=== PATIENT | male | born 1960 | race Caucasian/White ===

== ENCOUNTER 2019-07-31 19:20 | Inpatient (IN) | payer MEDICARE, MEDICAID ==
[~2019-07-31] VITALS: Ht 190.5 cm; Wt 109.2 kg
[2019-07-31] MEDS ORDERED: BAYER CHEWABLE81 MG PO (19:25)
[2019-07-31] MEDS ORDERED: LIPITOR40 MG PO (19:25)
[2019-07-31] MEDS ORDERED: FERROUS SULFAT325 MG PO (19:26)
[2019-07-31] MEDS ORDERED: PLAVIX75 MG PO (19:26)
[2019-07-31] MEDS ORDERED: LASIX40 MG PO (19:26)
[2019-07-31] MEDS ORDERED: CATAPRES0.1 MG PO (19:26)
[2019-07-31] MEDS ORDERED: METOPROLOL TART50 MG PO (19:27)
[2019-07-31] MEDS ORDERED: LANTUS SOL100 UNIT/1 SC (19:27)
[2019-07-31] MEDS ORDERED: LINZESS145 MCG PO (19:27)
[2019-07-31] MEDS ORDERED: GLUCOPHAGE500 MG PO (19:27)
[2019-07-31] MEDS ORDERED: FLOMAX0.4 MG PO (19:28)
[2019-07-31] MEDS ORDERED: TRADJENTA5 MG PO (19:28)
[2019-07-31] MEDS ORDERED: ALBUTEROL SULF8.5 GM IH (19:28)
[2019-07-31 20:00] VITALS: BP 177/87
--- NOTE | 2019-07-31 20:32 | NUR ---
PT GIVEN BLACK COFFEE AND SANDWICH BOX. PT AT BEDSIDE.
[2019-07-31 20:33] VITALS: BP 185/101
[2019-07-31 22:14] VITALS: BP 173/80; BMI 43.8
--- NOTE | 2019-07-31 23:54 | NUR ---
REPORTED BY HAIR SPECIALIST THAT SHE HAD GONE INTO THE ROOM PATIENT HAD VENTI MASK OFF O2 STAT 61. VENTI MASK PLACED BACK ON PATIENT. PATIENT NOW AT 92%.
[2019-08-01] VITALS (25 sets, daily range): BP systolic 111–171; BP diastolic 59–100; BMI 43.3
--- NOTE | 2019-08-01 00:30 | NUR ---
PT RECEIVED FROM [facility] 2 AFTER A RAPID RESPONSE. PT IS CONFUSED AND UNCOOPERATIVE. HE IS BEING HELD IN BED BY 4 STAFF. TRANSFERRED TO ICU BED 2300. SOFT WRIST RESTRAINTS APPLIED PER ORDER. BIPAP INITIATED BT RT. PT SOON BECAME CALM AND WENT TO SLEEP.
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
--- NOTE | 2019-08-01 01:00 | NUR ---
PTS LIFE PARTNER UPDATED ON PT CONDITION. SHE STATES THAT SHE WILL BE STAYING IN THE WAITING ROOM. 18G PIV STARTED IN L AC X 1 STICK.
[2019-08-01 03:57] LABS: BASOPHILS 0.2 % (0-2); EOSINOPHILS 0.1 % (0-7); HEMATOCRIT 42.2 % (42.0-54.0); HEMOGLOBIN 12.5 g/dL (13.5-17.5); IMMATURE GRANULOCYTES 1.3 % (0-5); LYMPHOCYTES 12.4 % (15-50); MCH 28.6 pg (26.0-34.0); MCHC 29.6 g/dL (31.0-37.0); MCV 96.6 fL (80.0-100.0); MEAN PLATELET VOLUME 9.6 fL (7.4-10.4); MONOCYTES 11.4 % (2-11); NEUTROPHILS 74.6 % (40-80); PLATELET COUNT 245 10x3/uL (130-400); RBC 4.37 10x6/uL (4.20-6.10); RDW 15.4 % (11.5-14.5); WBC 10.3 10x3/uL (4.8-10.8)
[2019-08-01 04:24] LABS: APTT 30.1 SECONDS (22.8-39.4); INR 1.07 (0.85-1.17); PROTIME 13.4 SECONDS (11.6-15.0)
[2019-08-01 04:26] LABS: D-DIMER-QUANTITATIVE 2.26 ug/mLFEU (0.20-0.54)
--- NOTE | 2019-08-01 04:30 | NUR ---
PT IS AWAKE AND ALERT. COOPERATIVE. FOLLOWS COMMANDS. LIFE PARTNER AT BEDSIDE. RESTRAINTS DC'D
[2019-08-01 04:41] LABS: ALBUMIN 2.7 g/dL (3.4-5.0); ANION GAP 4.4 mmol/L (8-16); BILIRUBIN - TOTAL 0.34 mg/dL (0.2-1.3); CALCIUM 8.6 mg/dL (8.5-10.1); CARBON DIOXIDE 38.1 mmol/L (21.0-32.0); CREATININE - SERUM 1.2 mg/dL (0.6-1.3); MAGNESIUM - SERUM 2.1 mg/dL (1.8-2.4); PHOSPHOROUS 4.6 mg/dL (2.5-4.9); POTASSIUM - SERUM 4.5 mmol/L (3.5-5.1); PROTEIN - SERUM 6.8 g/dL (6.4-8.2); TROPONIN-I 0.025 ng/mL (0.000-0.060)
--- NOTE | 2019-08-01 07:00 | NUR ---
RECEIVED REPORT FROM MARIUSZ HERNANDEZ. PT RESTING IN BED ON BIPAP. VSS. SIGNIFICANT OTHER AT BEDSIDE. PULLED UP IN BED. PT ABLE TO SCOOT UP SELF WHEN ASKED. WILL CONTINUE TO MONITOR
--- NOTE | 2019-08-01 09:29 | NUR ---
OBTAINED CONSENT FOR THORACENTESIS BY DR. AJ. CANCELLED IR THORACENTESIS.
--- NOTE | 2019-08-01 10:10 | NUR ---
THORACENTESIS COMPLETED BY DR. AJ. 4390 SEROSANGUINEOUS FLUID REMOVED FROM RIGHT SIDE. VSS. ON 5L HIGH FLOW NC NOW.
[2019-08-01 11:45] LABS: PROTEIN - BODY FLUID 3.4 G/DL
[2019-08-01 12:07] LABS: MACROPHAGES BF 14 %
--- NOTE | 2019-08-01 13:20 | NUR ---
PATIENT BEGAN DESATURATING IN MID 80%S ON HIGH FLOW NC AT 13L/MIN O2. PLACED BACK ON BIPAP. SITUATION RESOLVD
--- NOTE | 2019-08-01 13:24 | MORECARE ---
CASE MANAGEMENT DISCHARGE SUMMARY PATIENT: TIKI PIERSON UNIT: [id number] ADM DATE: 07/31/19 AGE: 59 : 56 SEX: M ROOM/BED: D.2301 AUTHOR: YASSINE WESTON PHYSICIAN: REFERRING PHYSICIAN: JULIANA BOO MD DATE OF SERVICE: 08/01/19 Discharge Plan Patient Name: TIKI PIERSON Facility: [facility]:[place] : 1960 Planned Disposition: Home with Home Health Anticipated Discharge Date: Discharge Date: Expected LOS: Initial Reviewer: [email or web address] Initial Review Date: 07/31/2019 Generated: 08/01/19 2:24 pm Patient Name: TIKI PIERSON Page 23773 at 1324 All edits/amendments must be made on the electronic document DICTATION DATE: 08/01/19 1324 SENIOR IT PROJECT MANAGER: GERHARD 08/01/19 1324 RPT#: [id number] DC DATE: STATUS: ADM IN [facility] [address] [place] [address] END OF REPORT
--- NOTE | 2019-08-01 13:31 | MORECARE ---
CASE MANAGEMENT DISCHARGE SUMMARY PATIENT: TIKI PIERSON UNIT: [id number] ADM DATE: 07/31/19 AGE: 59 : 56 SEX: M ROOM/BED: D.2301 AUTHOR: YASSINE WESTON PHYSICIAN: REFERRING PHYSICIAN: JULIANA BOO MD DATE OF SERVICE: 08/01/19 Discharge Plan Patient Name: TIKI PIERSON Facility: [facility]:[place] : 1960 Planned Disposition: Home with Home Health Anticipated Discharge Date: Discharge Date: Expected LOS: Initial Reviewer: [email or web address] Initial Review Date: 07/31/2019 Generated: 08/01/19 2:31 pm DCPIA - Discharge Planning Initial Assessment Updated by [email or web address]: Carmen Velez on 08/01/19 1:26 pm * Is the patient Alert and Oriented? No * How many steps to enter\exit or inside your home? * PCP Monika - Dr Sweeney [facility] in [place] * Pharmacy [facility] * Preadmission Environment Home with Family * ADLs Independent * Equipment Cane * List name and contact numbers for known caregivers / representatives who currently or will assist patient after discharge: CHA REYNA - SIGNIFICANT OTHER- [phone] * Verbal permission to speak to the caregivers and representatives has been obtained from the patient. N/A * Community resources currently utilized Home Health * Please name any agencies selected above. [facility] * Additional services required to return to the preadmission environment? No * Can the patient safely return to the preadmission environment? Yes * Has this patient been hospitalized within the prior 30 days at any hospital? No Last DP export: 08/01/19 12:24 Patient Name: TIKI PIERSON Page 24888 at 1331 All edits/amendments must be made on the electronic document DICTATION DATE: 08/01/19 1331 YARD SPECIALIST: GERHARD 08/01/19 1331 RPT#: [id number] DC DATE: STATUS: ADM IN [facility] [address] [place] [address] END OF REPORT
--- NOTE | 2019-08-01 13:38 | MORECARE ---
CASE MANAGEMENT DISCHARGE SUMMARY PATIENT: TIKI PIERSON UNIT: [id number] ADM DATE: 07/31/19 AGE: 59 : 56 SEX: M ROOM/BED: D.2301 AUTHOR: YASSINE WESTON PHYSICIAN: REFERRING PHYSICIAN: JULIANA BOO MD DATE OF SERVICE: 08/01/19 Discharge Plan Patient Name: TIKI PIERSON Facility: [facility]:[place] : 1960 Planned Disposition: Home with Home Health Anticipated Discharge Date: Discharge Date: Expected LOS: Initial Reviewer: [email or web address] Initial Review Date: 07/31/2019 Generated: 08/01/19 2:37 pm Comments DCP- Discharge Planning Updated by [email or web address]: Carmen Velez on 08/01/19 12:[address] Patient Name: TIKI PIERSON Admission Status: ER Accout number: [id number] Admission Date: 07-31-2019 : 1960 Admission Diagnosis: Attending: JULIANA BOO Current LOS: 1 Anticipated DC Date: Planned Disposition: Home with Home Health Primary Insurance: [facility] [employer] Discharge Planning Comments: CM met with patient and his significant other Cha Solitario to complete initial dc planning assessment. CM educated patient on the CM role and verbal consent given by Cha to complete assessment. CM verified patient's address, phone number, and emergency contact phone numbers. Patient lives at home with Cha who reports patient is independent of his care. Patient currently has [facility] in [place] and wishes to resume at discharge. VERENA form signed by Cha for resumption of [facility]. Signed form placed in chart and signed form given to Cha. At discharge patient plans to return home and feels this is a safe discharge. Cha denied further known discharge needs at this time. Cha reports she will transport him home at time of discharge. Patient appears to be sleeping during assessment and never acknowledged cm in room. Patient will need Physical Therapy once MD feels patient is medically stable to participate. CM will continue to follow and will assist as needed with dc plans/needs. Wood Lathe Operator: Carmen Velez DCPIA - Discharge Planning Initial Assessment Updated by [email or web address]: Carmen Velez on 08/01/19 1:26 pm * Is the patient Alert and Oriented? No * How many steps to enter\exit or inside your home? * PCP Monika - [facility] in [place] * Pharmacy [facility] * Preadmission Environment Home with Family * ADLs Independent * Equipment Cane * List name and contact numbers for known caregivers / representatives who currently or will assist patient after discharge: CHA SOLITARIO - SIGNIFICANT OTHER- [phone] * Verbal permission to speak to the caregivers and representatives has been obtained from the patient. N/A * Community resources currently utilized Home Health * Please name any agencies selected above. [facility] * Additional services required to return to the preadmission environment? No * Can the patient safely return to the preadmission environment? Yes * Has this patient been hospitalized within the prior 30 days at any hospital? No Last DP export: 08/01/19 12:31 Patient Name: TIKI PIERSON Page 45067 at 1338 All edits/amendments must be made on the electronic document DICTATION DATE: 08/01/191336 BULK STATION AGENT: GERHARD 08/01/191336 RPT#: [id number] DC DATE: STATUS: ADM IN [facility] [address] [place] [address] END OF REPORT
--- NOTE | 2019-08-01 15:33 | NUR ---
NOTIFIED DR. AJ OF [facility]. ORDERS TO INCREASE BIPAP SETTING FROM 09/23 YO 04/05.
--- NOTE | 2019-08-01 19:30 | NUR ---
PT RESTING QUIETLY, AROUSES TO VERBAL, BIPAP IN USE, LEFT PIV INTACT AND SL, VITALS STABLE, WILL CONT TO MONITOR
--- NOTE | 2019-08-01 21:30 | NUR ---
AND FAMILY AT BEDSIDE, PT VOICES NEEDS, TAKES PO MEDS WITHOUT DIFFICULTY, NO C/O
--- NOTE | 2019-08-01 23:30 | NUR ---
PT BATHED PER STAFF, TOLERATED WELL, VITALS STABLE, REMAINS ON BIPAP
[2019-08-02] VITALS (21 sets, daily range): BP systolic 100–188; BP diastolic 47–118
--- NOTE | 2019-08-02 01:02 | NUR ---
PT ALERT, GIVEN DRINK OF WATER PER PT REQUEST, NO DISTRESS NOTED
--- NOTE | 2019-08-02 03:09 | NUR ---
PT AWAKE, C/O BEING THIRSTY, GIVEN DRINK OF WATER, WARNED PT ABOUT DRINKING TOO MUCH FLUIDS, VITALS STABLE, WILL CONT TO MONITOR
[2019-08-02 04:26] LABS: BASOPHILS 0.2 % (0-2); EOSINOPHILS 0 % (0-7); HEMATOCRIT 46.1 % (42.0-54.0); HEMOGLOBIN 13.2 g/dL (13.5-17.5); IMMATURE GRANULOCYTES 0.8 % (0-5); LYMPHOCYTES 7.5 % (15-50); MCH 28.7 pg (26.0-34.0); MCHC 28.6 g/dL (31.0-37.0); MEAN PLATELET VOLUME 9.6 fL (7.4-10.4); MONOCYTES 8.7 % (2-11); NEUTROPHILS 82.8 % (40-80); PLATELET COUNT 243 10x3/uL (130-400); RDW 15.4 % (11.5-14.5); WBC 10.9 10x3/uL (4.8-10.8)
[2019-08-02 04:29] LABS: MCV 100.2 fL (80.0-100.0)
[2019-08-02 04:45] LABS: ANION GAP 6.4 mmol/L (8-16); CALCIUM 8.4 mg/dL (8.5-10.1); CARBON DIOXIDE 36.9 mmol/L (21.0-32.0); CREATININE - SERUM 1.1 mg/dL (0.6-1.3); MAGNESIUM - SERUM 2.6 mg/dL (1.8-2.4); PHOSPHOROUS 4.4 mg/dL (2.5-4.9)
[2019-08-02 04:47] LABS: POTASSIUM - SERUM 5.3 mmol/L (3.5-5.1)
--- NOTE | 2019-08-02 05:15 | NUR ---
PT RESTING QUIETLY WITH BIPAP IN USE, VITALS STABLE
--- NOTE | 2019-08-02 07:00 | NUR ---
BEDSIDE REPORT RECEIVED. ASSESSMENT COMPLETED PER FLOWSHEET, SEE FLOWSHEET FOR INFORMATION. VSS. NO NEEDS OR DISTRESS NOTED AT THIS TIME. WILL CONT TO MONITOR.
--- NOTE | 2019-08-02 09:00 | NUR ---
AND PT AT BEDSIDE. ORDERS TO SHAVE PT FACE FOR A MORE SECURE BIPAP FIT. PT AND PT VERBALLY CONSENT. BEDBATH AND COMPLETE LINEN CHANGE COMPLETED ALSO. GAVE PT 2 JELLOS FOR A SNACK WHILE ON NC, ON BREAK FROM BIPAP. NO NEEDS OR DISTRESS NOTED AT THIS TIME. VSS. WILL CONT TO MONITOR.
--- NOTE | 2019-08-02 09:35 | NUR ---
Nutrition follow-up: Diet: ADA consistent CHO Thoracentesis 08/01 Labs reviewed: K elevated at 5.3, glucose under fair to good control Wt: 336# RDN following.
--- NOTE | 2019-08-02 11:00 | NUR ---
PT ON BIPAP. VSS. NO NEEDS OR DISTRESS NOTED AT THIS TIME. WILL CONT TO MONITOR.
--- NOTE | 2019-08-02 13:00 | NUR ---
PT AT BEDSIDE. BED LINENS CHANGED. BEDBATH GIVEN. VSS. NO NEEDS OR DISTRESS NOTED AT THIS TIME. WILL CONT TO MONITOR.
--- NOTE | 2019-08-02 15:00 | NUR ---
PT IN BED WATCHING TV. NO NEEDS OR DISTRESS NOTED AT THIS TIME. VSS. WILL CONT TO MONITOR.
--- NOTE | 2019-08-02 15:08 | EC ---
PATIENT:TIKI PIERSON DATE OF SERVICE: 07/31/19 SEX: M MEDICAL RECORD: [id number] DATE OF : [birth year] LOCATION:[facility] AGE OF PATIENT: 59 ADMISSION DATE: 07/31/19 REFERRING PHYSICIAN: INTERPRETING PHYSICIAN: DARON KNOX MD ECHOCARDIOGRAM REPORT ECHO CHARGES 4 ECHO COMPLETE Date: 08/01/19 CLINICAL DIAGNOSIS: DYSPNEA ECHOCARDIOGRAPHIC MEASUREMENTS (adult normal given) AC root (d.<3.7cm) cm LV Septum d (<1.2 cm> 1.9 cm Valve Excursion cm LV Septum (systole) 2.1 cm Left Atria (s.<4.0cm> cm LVPW d(<1.2cm) 1.7 cm RV (d.<2.3cm) cm LVPW (sytole) 2.6 cm LV diastole(<5.6CM) 5.3 cm MV E-F(>70mm/sec) cm LV systole 2.8 cm LVOT Diameter cm MV exc.(>10mm) cm Est.ejection fraction (50-75%) % DOPPLER: LVIT cm/sec A 81 cm/sec E 77 cm/sec LA cm/sec RVSP 15.3 mmHg LVOT 131 cm/sec AOP1/2T m/s Asc. Ao 132 cm/sec RVOT cm/sec RA cm/sec PA cm/sec AV Gradient Peak 7.0 mmHg AV Mean 3.5 mmHg AV Area cm MV Gradient Peak 4.3 mmHg MV Mean 2.0 mmHg MV Area cm COMMENTS: Business Intelligence Director: Oralia RUSSELL Criminal Records Technician: 3 Dr. Valle TAPE# PACS Pericardial Effusion N DATE OF SERVICE: Adequate 2D, color flow, spectral Doppler, and M-Mode. LVH is present. LV internal dimensions are normal. Difficult to fully assess focal wall motion on views present; however, estimated EF 45% to 50%. Aortic valve is tricuspid. No evidence of stenosis by Doppler interrogation. Left atrium is normal. Mitral valve shows no prolapse. No significant MR. Right-sided chambers grossly normal. No significant TR. ECHOCARDIOGRAM REPORT [id number] TIKI PIERSON TRANSINT:[id number] Voice Confirmation ID: [id number] DOCUMENT ID: [id number] DARON KNOX MD at 1508 CC: [id number] DICTATION DATE: 08/01/19 1319 QUILLER RUNNER: 08/01/19 1330 ADM IN [place] [address] [place] [id number]
--- NOTE | 2019-08-02 17:00 | NUR ---
PT AT [facility]. RT IS AT BEDSIDE GETTING AND ABG. VSS. WILL CONT TO MONITOR.
--- NOTE | 2019-08-02 19:30 | NUR ---
PT ALERT, VOICES NEEDS, BIPAP IN USE, LEFT AC PIV INTACT AND SL, VITALS STABLE, WILL CONT TO MONITOR
--- NOTE | 2019-08-02 21:30 | NUR ---
PT AWAKE, PRESENT AT BEDSIDE, NO CHANGE IN STATUS
--- NOTE | 2019-08-02 23:45 | NUR ---
PT WITH CRACKLES BILAT, RESP RATE UP IN 30'S, HAVE INCREASED DIFFICULTY BREATHING, CALLED DR GONZALEZ, RECIEVED ORDERS, GIVEN LASIX 40 MG IVP
[2019-08-03] VITALS (24 sets, daily range): BP systolic 116–187; BP diastolic 62–108
--- NOTE | 2019-08-03 01:35 | NUR ---
PT REMAINS AWAKE, RESTLESS, RESP RATE REMAINS IN 30'S, VOIDING FREQUENTLY, WILL CONT TO MONITOR
--- NOTE | 2019-08-03 03:30 | NUR ---
PT REMAINS AWAKE, CONFUSED, VOIDED IN FLOOR, SITTING UP ON SIDE OF BED, INSTRUCTED PT TO USE CALL LIGHT FOR ASSISTANCE
[2019-08-03 04:17] LABS: BASOPHILS 0.1 % (0-2); EOSINOPHILS 0.2 % (0-7); HEMATOCRIT 44.1 % (42.0-54.0); HEMOGLOBIN 13.1 g/dL (13.5-17.5); IMMATURE GRANULOCYTES 0.4 % (0-5); LYMPHOCYTES 7.8 % (15-50); MCH 28.8 pg (26.0-34.0); MCHC 29.7 g/dL (31.0-37.0); MEAN PLATELET VOLUME 9.8 fL (7.4-10.4); MONOCYTES 12.4 % (2-11); NEUTROPHILS 79.1 % (40-80); PLATELET COUNT 258 10x3/uL (130-400); RBC 4.55 10x6/uL (4.20-6.10); WBC 12.5 10x3/uL (4.8-10.8)
[2019-08-03 04:22] LABS: MCV 96.9 fL (80.0-100.0)
[2019-08-03 04:25] LABS: ANION GAP 6.4 mmol/L (8-16); CALCIUM 8.6 mg/dL (8.5-10.1); CARBON DIOXIDE 37.3 mmol/L (21.0-32.0); CREATININE - SERUM 1.1 mg/dL (0.6-1.3); MAGNESIUM - SERUM 2.2 mg/dL (1.8-2.4); POTASSIUM - SERUM 4.7 mmol/L (3.5-5.1)
[2019-08-03 04:26] LABS: PHOSPHOROUS 2.2 mg/dL (2.5-4.9)
--- NOTE | 2019-08-03 05:00 | NUR ---
PT REMAINS CONFUSED, RESTLESS, BROUGHT IN TO BEDSIDE TO KEEP PT CALM, REMAINS ON BIPAP, SPO2 100%, RESP RSTE REMAINS 25-30'S, WILL CONT TO MONITOR
--- NOTE | 2019-08-03 07:00 | NUR ---
REC'D PT RESTLESS, DYSPNEIC, SATS DROPPING TO 80'S, LABORED BREATHING. PT CURRENTLY ON 12 L HF. PLACED BACK ON BIPAP. BREATHING MUCH BETTER. RESTING AND MORE CALM.
--- NOTE | 2019-08-03 08:45 | NUR ---
DR. AJ HERE. NEW ORDERS REC'D. PT RESTING BETTER. NO CHANGES IN AM ASSESS AFTER PLACING ON BIPAP.
--- NOTE | 2019-08-03 10:30 | NUR ---
ORDER TO PLACE F/C PER . 16 FR CELESTIN CATHETER INSERTED UNDER STERILE TECHNIQUE WITHOUT DIFFICULTY. APPROX 250 CC OF CLEAR YELLOW URINE OBTAINED. STAT LOCK IN PLACE. WILL CONTINUE TO MONITOR.
--- NOTE | 2019-08-03 12:30 | NUR ---
PT TAKEN DOWN VIA BED TO CT FOR CHEST ON 10L HF O2. WITH ASST OF CT TECHS X 2, RT AND MYSELF. PT TOLERATED WELL.
--- NOTE | 2019-08-03 19:30 | NUR ---
PT CARE ASSUMED. BIPAP ON SAT 100%. NO S/S OF DISTRESS AT THIS TIME. CALL LIGHT IN REACH. WILL CTM.
[2019-08-04] VITALS (22 sets, daily range): BP systolic 109–190; BP diastolic 67–107
--- NOTE | 2019-08-04 03:26 | NUR ---
PTS CELESTIN CONTAINED BRIGHT READ URINE WITH SOME CLOTS PRESENT IN THE BAG. PT STATED HE HAD TO PEE AND URINE CAME OUT AROUND THE TUBE. D/Cd THE CELESTIN. PROVIDED LINEN CHANGE. PT CONTINUES TO BE ALERT AND ORIENTED. NO FURTHER CHANGES NOTED AT THIS TIME. WILL CTM.
[2019-08-04 03:48] LABS: BASOPHILS 0.1 % (0-2); EOSINOPHILS 0.6 % (0-7); HEMOGLOBIN 11.9 g/dL (13.5-17.5); IMMATURE GRANULOCYTES 0.2 % (0-5); LYMPHOCYTES 14.3 % (15-50); MCH 28.1 pg (26.0-34.0); MCHC 29.8 g/dL (31.0-37.0); MEAN PLATELET VOLUME 9.7 fL (7.4-10.4); MONOCYTES 13.3 % (2-11); NEUTROPHILS 71.5 % (40-80); PLATELET COUNT 223 10x3/uL (130-400); RBC 4.23 10x6/uL (4.20-6.10)
[2019-08-04 04:11] LABS: MCV 94.6 fL (80.0-100.0); WBC 8.9 10x3/uL (4.8-10.8)
[2019-08-04 04:21] LABS: CALC OSMOLALITY 289 mosm/kg (275-300); CALCIUM 8.3 mg/dL (8.5-10.1); CARBON DIOXIDE 38.7 mmol/L (21.0-32.0); CHLORIDE - SERUM 99 mmol/L (98-107); GLUCOSE 203 mg/dL (74-106); MAGNESIUM - SERUM 2.3 mg/dL (1.8-2.4); PHOSPHOROUS 2.2 mg/dL (2.5-4.9); POTASSIUM - SERUM 4.2 mmol/L (3.5-5.1); SODIUM 139 mmol/L (136-145); UREA NITROGEN 29 mg/dL (7-18); eGFR NON AFRICAN AMERICAN 81 mL/min (90-120)
--- NOTE | 2019-08-04 07:44 | NUR ---
Nutrition follow-up: Diet: ADA consistent CHO Pt with SOB; BIPAP PO intake poor at this time Labs reviewed Wt: 330# Will need to start nutrition support if po intake continues to be poor. RDN following.
--- NOTE | 2019-08-04 07:45 | NUR ---
RESTING QUIETLY IN BED WITH BIPAP IN PLACE.
--- NOTE | 2019-08-04 08:30 | NUR ---
SITTING UP IN BED EATING BREAKFAST. FAMILY AT BEDSIDE. TOOK AM MEDS WITHOUT DIFFICULTY. ALERT AND ORIENTED X3. LUNGS ARE CLEAR BILATERALLY BUT DIMINISHED ON RIGHT SIDE. NO COUGH NOTED. SKIN IS INTACT WITHOUT REDNESS. IV TO RIGHT WRIST IS PATENT WITHOUT REDNESS AT INSERTION SITE. ASSISTED WITH URINAL PER STAFF. URINE IS REDTINGED BUT VOIDED WITHOUT DIFFICULTY. WILL MONITOR.BIPAP OFF AT THIS TIME. SATS IN THE MID 90'S.
--- NOTE | 2019-08-04 09:38 | NUR ---
RESTING QUIETLY IN BED. O2 AT 8L NC. SATS IN THE MID 90'S. DENIES NEEDS.
--- NOTE | 2019-08-04 10:44 | NUR ---
VOIDED 250CC BROWNISH URINE WITH STAFF ASSIST. DENIES NEEDS.
--- NOTE | 2019-08-04 11:45 | NUR ---
FSBS 228. GIVEN 8 UINTS HUMALOG SUBQ PER SS. UP TO CHAIR AT BEDSIDE WITH ONE PERSON MIN ASSIST. DID WELL AND WAS ABLE TO BEAR HIS OWN WEIGHT.
--- NOTE | 2019-08-04 12:30 | NUR ---
LUNCH SERVED IN ROOM. FEEDS SELF. DENIES NEEDS. FAMILY AT BEDSIDE.
--- NOTE | 2019-08-04 14:07 | NUR ---
LINENS CHANGED PER STAFF. NEW MATTRESS OBTAINED FOR BED. CONTINUES UP IN CHAIR AND REFUSED OFFER OF GOING BACK TO BED. DR. GOMEZ WAS HERE AND ANSWERED PATIENT AND FAMILIES QUESTIONS.
--- NOTE | 2019-08-04 16:40 | NUR ---
FSBS 174. GIVEN 4 UNITS HUMALOG SUBQ PER SS. UP TO CHAIR AT BEDSIDE FOR DINNER MIN ASSIST OF ONE.
--- NOTE | 2019-08-04 19:15 | NUR ---
RECEIVED CARE OF PT, ASSESSMENT PER FLOWSHEET. PT SR ON CM, PPP, ALERT AND ORIENTED X 4, ON 6L HFNC, DIM BREATH SOUNDS NOTED. PT DENIES ANY NEEDS AT THIS TIME, CALL LIGHT IN REACH.
--- NOTE | 2019-08-04 21:30 | NUR ---
PT VISITING WITH FAMILY IN NO APPARENT DISTRESS, ALL DENY ANY NEEDS AT THIS TIME, VSS.
--- NOTE | 2019-08-04 23:00 | NUR ---
REASSESSMENT PER FLOWSHEET, NO ACUTE CHANGES NOTED AT THIS TIME. ICE WATER PROVIDED PER REQUEST, DENIES ANY OTHER NEEDS, CALL LIGHT IN REACH.
[2019-08-05] VITALS (24 sets, daily range): BP systolic 101–176; BP diastolic 64–99; Ht 190.5 cm; Wt 109.2 kg
--- NOTE | 2019-08-05 01:50 | NUR ---
PT RESTING IN BED WITH EYES CLOSED, BIPAP IN PLACE, VSS.
--- NOTE | 2019-08-05 03:00 | NUR ---
REASSESSMENT PER FLOWSHEET, SR ON CM, BIPAP IN PLACE-60% FIO2, VSS.
[2019-08-05 04:56] LABS: BASOPHILS 0.3 % (0-2); HEMATOCRIT 37.1 % (42.0-54.0); IMMATURE GRANULOCYTES 0.3 % (0-5); LYMPHOCYTES 19.8 % (15-50); MCH 28.4 pg (26.0-34.0); MCHC 29.6 g/dL (31.0-37.0); MCV 95.6 fL (80.0-100.0); MEAN PLATELET VOLUME 9.5 fL (7.4-10.4); MONOCYTES 16.6 % (2-11); PLATELET COUNT 228 10x3/uL (130-400); RBC 3.88 10x6/uL (4.20-6.10); RDW 15.1 % (11.5-14.5)
--- NOTE | 2019-08-05 04:56 | NUR ---
PT FAMILY IN FOR VISITATION, ASSISTED PT INTO COMFORTABLE POSITION, BOTH DENY ANY NEEDS, VSS
[2019-08-05 04:58] LABS: WBC 6.5 10x3/uL (4.8-10.8)
[2019-08-05 05:16] LABS: CALC OSMOLALITY 285 mosm/kg (275-300); CALCIUM 7.9 mg/dL (8.5-10.1); CARBON DIOXIDE 38.6 mmol/L (21.0-32.0); CHLORIDE - SERUM 103 mmol/L (98-107); CREATININE - SERUM 0.8 mg/dL (0.6-1.3); GLUCOSE 138 mg/dL (74-106); MAGNESIUM - SERUM 2.2 mg/dL (1.8-2.4); PHOSPHOROUS 2.6 mg/dL (2.5-4.9); POTASSIUM - SERUM 3.6 mmol/L (3.5-5.1); SODIUM 141 mmol/L (136-145); UREA NITROGEN 21 mg/dL (7-18); eGFR NON AFRICAN AMERICAN > 90 mL/min (90-120)
--- NOTE | 2019-08-05 05:18 | NUR ---
AM LABS REVIEWED, NOTHING TO TREAT PER ELECTROLYTE PROTOCOL. AT BEDSIDE
--- NOTE | 2019-08-05 08:39 | NUR ---
UP IN BED EATING SUPPER AT THIS TIME VISITING WITH . NO ACUTE DISTRESS NOTED. VSS. PT NOTED OFF BIPAP AT BREAKFAST TIME TO EAT AT 6L HIGH FLOW NC, OXYGEN SATURATION AT 88%, BIPAP PLACED AT THIS TIME PER ORDERS TO KEEP OXYGEN SATURATION ABOVE 90%. FIO2 60%, OXYGEN SATURATION NOW AT 99%. WILL CONTINUE TO OBSERVE.
--- NOTE | 2019-08-05 09:29 | NUR ---
PT INDEPENDENT IN BED, REPOSITIONS SELF Q2H. CALL LIGHT IN REACH AND BED ALARM ON. CALL LIGHT IN REACH. BED LOW, PERSONAL ITEMS IN REACH. WILL CONTINUE PLAN OF CARE.
--- NOTE | 2019-08-05 10:13 | NUR ---
PER PTS , PTS ACTIVITY LEVEL DAY TO DAY INCLUDES GETTING UP FROM BED AND WALKING TO HIS CHAIR WHERE HE SITS ALL DAY AND DURING THOSE TIMES HE TYPICALLY REQUIRES HIS EMERGENT INHAILER FOR HIS SHORTNESS OF BREATH. PT CURRENTLY ASKED TO GET UP IN CHAIR, PT NOTIFIED THAT SINCE HE IS CURRENTLY REQUIRING A BIPAP THAT HE NEEDS TO IMPROVE WITH HIS OXYGENATION BEFORE GETTING OUT OF BED IN ORDER TO NOT CAUSE ANY RESPIRATORY DISTRESS AND INCREASING HIS OXYGENATION NEEDS. PHYSICAL THERAPY TO WORK WITH PT AND ASSIST TO SIT ON SIDE OF BED DEPENDING ON TOLERANCE. VSS. WILL CONTINUE TO CLOSELY OBSERVE.
--- NOTE | 2019-08-05 12:52 | NUR ---
UP IN BED WATCHING TV AT THIS TIME. NO ACUTE DISTRESS NOTED. VSS. PT CURRENTLY TOLERATING HIGH FLOW NC AT 6L OXYGEN SATURATION REMAINING ABOVE 90%. WILL CONTINUE PLAN OF CARE.
--- NOTE | 2019-08-05 14:55 | NUR ---
CHG BATH ADMIN AT THIS TIME VIA MINIMAL ASSIST. TOTAL LINEN CHANGE ALSO PROVIDED. NO ACUTE DISTRESS NOTED. VSS. WILL CONTINUE PLAN OF CARE.
--- NOTE | 2019-08-05 16:29 | NUR ---
UP IN BED AWAKE AT THIS TIME. DENIES ANY NEEDS. VSS. WILL CONTINUE PLAN OF CARE.
--- NOTE | 2019-08-05 17:27 | NUR ---
UP IN BED WATCHING TV, EATING SUPPER, AND VISITING WITH . NO ACUTE DISTRESS NOTED. VSS. CALL LIGHT IN REACH. WILL CONTINUE PLAN OF CARE.
--- NOTE | 2019-08-05 19:00 | NUR ---
REPORT RECEIVED. INITIAL ASSESSMENT COMPLETE. PT LAYING ON RIGHT SIDE WITH HFNC AT 6LPM. PT OBESE ABLE TO REPOSITION SELF, CM READING SR WITH ALARMS ON AND AUDIBLE. PT DENIES PAIN READY TO GET OUT OF UNIT. RIGHT WRIST IV PATENT SEE FLOWSHEETS FOR COMPLETE ASSESSMENT. CL IN REACH BED RAILS UP X3 FOR BED MOBILITY AND SAFETY BED LOW POSIION CPOC
--- NOTE | 2019-08-05 20:00 | NUR ---
FAMILY AT BEDSIDE FOR VISITATION UPDATE GIVEN
--- NOTE | 2019-08-05 21:15 | NUR ---
ANSWERED PTS CALL LIGHT PT STATES ONE FAN NOT ENOUGH HE IS GETTING TOO HOT. AND READY FOR BIPAP SO HE CAN GET SOME SLEEP.
--- NOTE | 2019-08-05 23:00 | NUR ---
REASSESSMENT MADE PT COLD NOW DOES NOT WANT FAN TEMP WNL AND BLANKET GIVEN ASSIST PT WITH URINAL HE IS OBESE UNABLE TO USE INDEPENDENTLY. CPOC BIPAP ON
[2019-08-06] VITALS (24 sets, daily range): BP systolic 126–184; BP diastolic 75–104
--- NOTE | 2019-08-06 01:00 | NUR ---
PT RESTING QUIETLY WITH EYES CLOSED VSS BIPAP NOW AT 40% WILL CONTINUE TO MONITOR
--- NOTE | 2019-08-06 03:30 | NUR ---
LAB HERE TO DRAW AM LABS
[2019-08-06 04:07] LABS: BASOPHILS 0.3 % (0-2); EOSINOPHILS 2.3 % (0-7); HEMATOCRIT 37.9 % (42.0-54.0); HEMOGLOBIN 11.3 g/dL (13.5-17.5); IMMATURE GRANULOCYTES 0.3 % (0-5); LYMPHOCYTES 21.7 % (15-50); MCH 28.1 pg (26.0-34.0); MCHC 29.8 g/dL (31.0-37.0); MCV 94.3 fL (80.0-100.0); MEAN PLATELET VOLUME 9.7 fL (7.4-10.4); NEUTROPHILS 61.4 % (40-80); PLATELET COUNT 220 10x3/uL (130-400); RBC 4.02 10x6/uL (4.20-6.10); RDW 14.6 % (11.5-14.5)
[2019-08-06 04:09] LABS: ALKALINE PHOSPHATASE 73 U/L (46-116); ALT (SGPT) 17 U/L (10-68); BILIRUBIN - TOTAL 0.41 mg/dL (0.2-1.3); CALC OSMOLALITY 286 mosm/kg (275-300); CALCIUM 8.1 mg/dL (8.5-10.1); CARBON DIOXIDE 38.4 mmol/L (21.0-32.0); CHLORIDE - SERUM 104 mmol/L (98-107); CREATININE - SERUM 0.9 mg/dL (0.6-1.3); GLUCOSE 157 mg/dL (74-106); MAGNESIUM - SERUM 2.2 mg/dL (1.8-2.4); POTASSIUM - SERUM 3.8 mmol/L (3.5-5.1); PROTEIN - SERUM 5.7 g/dL (6.4-8.2); SODIUM 142 mmol/L (136-145); UREA NITROGEN 16 mg/dL (7-18); eGFR NON AFRICAN AMERICAN > 90 mL/min (90-120)
--- NOTE | 2019-08-06 05:00 | NUR ---
FAMILY AT BEDSIDE FOR VISITATION
--- NOTE | 2019-08-06 07:57 | NUR ---
UP IN BED EATING BREAKFAST AT THIS TIME. NO ACUTE DISTRESS NOTED. VSS. CALL LIGHT IN REACH. WILL CONTINUE PLAN OF CARE.
--- NOTE | 2019-08-06 09:58 | NUR ---
UP IN BED VISITING WITH AT THIS TIME. NO ACUTE DISTRESS NOTED. VSS. CALL LIGHT IN REACH. PT INDEPENDENT IN BED. WILL CONTINUE PLAN OF CARE.
--- NOTE | 2019-08-06 11:00 | NUR ---
PT UPTO CHAIR AT THIS TIME, TOLERATED WELL,
[2019-08-06 11:21] LABS: PLT FUNCT.(P2Y12) PLAVIX 152 PRU (194-418)
--- NOTE | 2019-08-06 12:49 | NUR ---
Rehab Note- Acute Inpatient Rehab prescreen order was received. The patient has [facility] insurance and will require a PreAuth prior to an acute inpatient rehab stay. Will need an OT Eval for PReAuth process. Will follow at this time. Thank you for this referral! Soila Reese RN Clinical Liaison, [facility] Rehab
--- NOTE | 2019-08-06 13:00 | NUR ---
FAMILY AT BEDSIDE, UPDATE GIVEN, PT STILL REMAINS UP IN CHAIR, NO DISTRESS NOTED,
--- NOTE | 2019-08-06 15:05 | NUR ---
REASSESSMENT COMPLETE, NO CHANGES NOTED, RESTING UP IN CHAIR, DENIES ANY NEEDS OR WANTS,
--- NOTE | 2019-08-06 17:00 | NUR ---
FAMILY AT BEDSIDE, UPDATE GIVEN
--- NOTE | 2019-08-06 19:00 | NUR ---
PATIENT UP AT BEDSIDE TABLE DURING SHIFT CHANGE/ASSESSMENT AND TALKING TO SIGNIFICANT OTHER VIA TELEPHONE. PATIENT DENIES PAIN. DENIES FURTHER NEEDS OR CONCERNS AT THIS TIME. IV INFUSING WITHOUT SIGNS OF INFILTRATION. CALL LIGHT WITHIN REACH. WILL CONTINUE TO MONITOR.
--- NOTE | 2019-08-06 22:16 | NUR ---
PATIENT ASSISTED BACK INTO BED AND REPOSITIONED. CALL LIGHT WITHIN REACH. BED LOWERED/LOCKED. PATIENT DENIES FURTHER NEEDS OR CONCERNS AT THIS TIME. WILL CONTINUE TO MONITOR.
[2019-08-07] VITALS (19 sets, daily range): BP systolic 147–182; BP diastolic 76–106
[2019-08-07 04:31] LABS: BASOPHILS 0.1 % (0-2); EOSINOPHILS 2.1 % (0-7); HEMATOCRIT 37.6 % (42.0-54.0); HEMOGLOBIN 11.3 g/dL (13.5-17.5); IMMATURE GRANULOCYTES 0.1 % (0-5); LYMPHOCYTES 22.8 % (15-50); MCHC 30.1 g/dL (31.0-37.0); MCV 93.3 fL (80.0-100.0); MONOCYTES 14.1 % (2-11); NEUTROPHILS 60.8 % (40-80); PLATELET COUNT 239 10x3/uL (130-400); RBC 4.03 10x6/uL (4.20-6.10); RDW 14.6 % (11.5-14.5); WBC 6.8 10x3/uL (4.8-10.8)
[2019-08-07 04:56] LABS: ALBUMIN 2.1 g/dL (3.4-5.0); ALKALINE PHOSPHATASE 73 U/L (46-116); ALT (SGPT) 19 U/L (10-68); BILIRUBIN - TOTAL 0.39 mg/dL (0.2-1.3); CALC OSMOLALITY 286 mosm/kg (275-300); CALCIUM 7.9 mg/dL (8.5-10.1); CARBON DIOXIDE 36.6 mmol/L (21.0-32.0); CHLORIDE - SERUM 102 mmol/L (98-107); CREATININE - SERUM 0.9 mg/dL (0.6-1.3); GLUCOSE 196 mg/dL (74-106); POTASSIUM - SERUM 3.6 mmol/L (3.5-5.1); PROTEIN - SERUM 5.8 g/dL (6.4-8.2); SODIUM 141 mmol/L (136-145); UREA NITROGEN 14 mg/dL (7-18); eGFR NON AFRICAN AMERICAN > 90 mL/min (90-120)
--- NOTE | 2019-08-07 07:00 | NUR ---
REC'D REPORT AND RESMED CARE, AAO, SBP 175, RESP 30, NOTED LABORED BREATHING, DENIES PAIN, O2 SAT 91%, ON 5L HF NC, APPREHENSIVE RE: CT PLACEMENT TODAY AND PAIN ASSOCIATED WITH IT, RIGHT WRIST PIV WITH NS AT 30 CC/HR, ASSESSMENT COMPLETED PER FLOWSHEET, REPOSITIONED UP AND TO THE LEFT SIDE WITH PILLOWS PLACED TO BACK, SIGNIFICANT OTHER AT BEDSIDE. CALL LIGHT IN REACH, NO NEEDS AT THIS TIME.
--- NOTE | 2019-08-07 08:30 | NUR ---
MORNING MEDS GIVEN WITH SIPS, TOLERATED WITHOUT DIFFICULTY
--- NOTE | 2019-08-07 09:00 | NUR ---
DR CHURCHILL AT BEDSIDE. DISCUSSED BP, BS, AND PENDING CT PLACMENT, FAMILY AT BEDSIDE, VERBALIZED UNDERSTANDING
--- NOTE | 2019-08-07 09:32 | NUR ---
Nutrition follow-up: Diet: Consistent CHO PO intake 100% of most meals Labs reviewed Wt: 339# Pt for CT placement today RDN following.
--- NOTE | 2019-08-07 12:30 | NUR ---
CHG BATH COMPLETED
--- NOTE | 2019-08-07 12:41 | NUR ---
GRADES 7 AND 8 VISITING TEACHER AT BEDSIDE FOR B/L GINNY TEST,
--- NOTE | 2019-08-07 13:45 | NUR ---
TO SURGERY FOR PENDING CT PLACEMENT, AAO, SIGNIFICANT OTHER AT BEDSIDE.
--- NOTE | 2019-08-07 15:02 | NUR ---
BACK FROM SURGERY, AWAKE AND DROWSEY, FOLLOWS DIRECTIONS, REACCLAMATED TO ICU, CONNECTED TO MONITOR, VSS, DENIES PAIN, RIGHT UPPER LATERAL CHEST TUBE WITH 600 CC BLOODY DRAINAGE TO CANISTER, FAMILY TO BEDSIDE, STATUS UPDATED, VOICES NO NEEDS AT THIS TIME
--- NOTE | 2019-08-07 19:05 | NUR ---
Received patient resting in bed with eyes closed, assessment completed per flowsheet. Patient AO x4, calm and cooperative. S1/S2 noted NSR with PVC on telemetry, rythmic and regular. Breathing is shallow on 3L via HFNC with O2 sat 93%, crackles noted bilateral upper and mid with diminished lower. R lateral CT x1 to 20 cm suction with small air leak noted, bloody drainage. Abdomen is rounds/soft with bowel sounds active x4, non-tender. Generalized edema with all pulses palpable, skin warm/dry with cap refill < 3 sec. C/O intermittent generalized aching 2/10, repositioned with stated relief. Denies further needs at this time, see flowsheet for details. All VSS and will continue to monitor.
--- NOTE | 2019-08-07 20:30 | NUR ---
Patient antibiotic given late by previous shift, contacted to pharmacy to notify and request to re-time administration. Current scheduled dose to be given 2 hrs after previous dose.
--- NOTE | 2019-08-07 21:00 | NUR ---
Patient laying in bed with eyes open and family at bedside, discussed current status/treatment plan with all questions answered to satisfaction. HS meds given without difficulty, no further needs and will continue to monitor.
--- NOTE | 2019-08-07 23:00 | NUR ---
Reassessment completed per flowsheet, no changes noted from previous assessment. S1/S2 noted NSR with PVC on telemetry, rythmic and regular. Breathing is shallow on BiPAP 40% with O2 sat 95%, crackles noted bilateral upper and mid with diminished lower. R lateral CT x1 to 20cm suction with bloody drainage, small air leak noted. All pulses palpable with cap refill < 3 sec, skin warm/dry. Repositioned for comfort, no further needs at this time. See flowsheet for details, all VSS and will continue to monitor.
[2019-08-08] VITALS (25 sets, daily range): BP systolic 120–173; BP diastolic 68–96
--- NOTE | 2019-08-08 01:00 | NUR ---
Patient sleeping in bed with eyes closed, no s/s of distress at this time. Repositioned for comfort, denies further needs and will continue to monitor.
--- NOTE | 2019-08-08 03:00 | NUR ---
Reassessment completed per flowsheet, no changes noted from previous assessment. S1/S2 noted NSR with PVC on telemetry, rythmic and regular. Breathing is shallow on BiPAP 40% with O2 sat 98%, crackles noted bilateral upper and mid with diminished lower. R lateral CT x1 to 20 cm suction with small air leak noted, bloody drainage. All pulses palpable with cap refill < 3 sec, skin warm/dry. Repositioned for comfort, denies needs at this time. See flowsheet for details, all VSS and will continue to monitor.
[2019-08-08 04:27] LABS: BASOPHILS 0.1 % (0-2); EOSINOPHILS 0.9 % (0-7); HEMATOCRIT 37.3 % (42.0-54.0); HEMOGLOBIN 11.1 g/dL (13.5-17.5); IMMATURE GRANULOCYTES 0.3 % (0-5); LYMPHOCYTES 12.5 % (15-50); MCH 27.8 pg (26.0-34.0); MCHC 29.8 g/dL (31.0-37.0); MCV 93.3 fL (80.0-100.0); MEAN PLATELET VOLUME 9.8 fL (7.4-10.4); MONOCYTES 11.3 % (2-11); NEUTROPHILS 74.9 % (40-80); PLATELET COUNT 241 10x3/uL (130-400); RDW 14.5 % (11.5-14.5)
[2019-08-08 04:34] LABS: WBC 8.8 10x3/uL (4.8-10.8)
[2019-08-08 04:51] LABS: ALKALINE PHOSPHATASE 72 U/L (46-116); ALT (SGPT) 18 U/L (10-68); BILIRUBIN - TOTAL 0.37 mg/dL (0.2-1.3); CALC OSMOLALITY 285 mosm/kg (275-300); CARBON DIOXIDE 36.6 mmol/L (21.0-32.0); CHLORIDE - SERUM 103 mmol/L (98-107); CREATININE - SERUM 0.8 mg/dL (0.6-1.3); GLUCOSE 227 mg/dL (74-106); POTASSIUM - SERUM 3.7 mmol/L (3.5-5.1); PROTEIN - SERUM 5.8 g/dL (6.4-8.2); SODIUM 139 mmol/L (136-145); UREA NITROGEN 14 mg/dL (7-18); eGFR NON AFRICAN AMERICAN > 90 mL/min (90-120)
--- NOTE | 2019-08-08 04:54 | NUR ---
Patient resting in bed with eyes closed, no s/s of distress at this time. Repositioned for comfort, denies further needs at this time and will continue to monitor.
--- NOTE | 2019-08-08 07:00 | NUR ---
REC'D REPORT AND RESUMED CARE, AAO, VSS, DENIES PAIN, ASSESSMENT COMPLETED PER FLOWSHEET, AWAITING PT TO GET OUT OF BED, FOR THE DAY, NO OTHER NEEDS AT THIS TIME, CALL LIGHT IN REACH
--- NOTE | 2019-08-08 08:00 | NUR ---
CALLED TO ROOM, REPOSITIONE TO LEFT SIDE WITH PILLOWS PROPPED TO BACK AND HEELS FLOATED, NO OTHER NEEDS AT THIS TIME
--- NOTE | 2019-08-08 09:15 | NUR ---
MORNING MEDS INTITIATED, TOLERATED WITHOUT DIFFICULTY
--- NOTE | 2019-08-08 10:00 | NUR ---
OOB TO CHAIR WITH ASSIST FROM PHYICAL THERAPY, UNSTEADY GAIT NOTED, TOLERATED WITHOUT DYSPNEA
[2019-08-08 10:09] LABS: TRIGLYCERIDE 76 mg/dL (30-200); TROPONIN-I < 0.017 ng/mL (0.000-0.060)
--- NOTE | 2019-08-08 10:42 | OP ---
PATIENT NAME: TIKI PIERSON MEDICAL RECORD: [id number] :56 LOCATION:[facility] D.2301 ADMISSION DATE:07/31/19 SURGEON: NORMAN GOMEZ MD DATE OF OPERATION: 08/07/2019 SURGEON: Norman Gomez MD [employer] WORKERS: Edward Sun. OPERATION PERFORMED: Right tube thoracostomy. INDICATION: Recurrent right pleural effusion. DESCRIPTION OF PROCEDURE: The patient is supine in the operating suite and general anesthetic. The right chest was prepped and draped. The right chest was exposed by spreading through the fat and muscle layers and the fluid was aspirated with a small needle. Then, the tube thoracostomy was placed. Total of 1700 cc of serosanguineous fluid removed. The tube was sutured in place. The incision was closed and chest x-ray is pending. TRANSINT:[id number] Voice Confirmation ID: [id number] DOCUMENT ID: [id number] NORMAN GOMEZ MD at 1042 CC: OSIEL AJ MD [id number] DICTATION DATE: 08/07/19 1514 LIFT TEAM TECHNICIAN: 08/07/19 1936 ADM IN [facility] [address] [id number]
--- NOTE | 2019-08-08 11:00 | NUR ---
CONTINUES TO SIT UP IN CHAIR, VSS, CALL LIGHT IN REACH, NO ACUTE CHANGE FROM PREVIOUS ASSESSMENT, NO NEEDS AT THIS TIME
--- NOTE | 2019-08-08 12:00 | NUR ---
SIGNIFICANT OTHER AT BEDSIDE, STATUS UPDATED, VOICES NO NEEDS AT THIS TIME, LUNCH TRAY TO BEDSIDE
--- NOTE | 2019-08-08 15:05 | NUR ---
PT HERE FOR HELP GETTING BTB, PT STATES HE WILL STAY UP A LITTLE LONGER, NO OTHER CHANGES FROM PREVIOUS
--- NOTE | 2019-08-08 16:00 | NUR ---
SIGNIFICANT OTHER AT BEDSIDE, PATIENT UP IN CHAIR, AAO, VSS, NO NEEDS AT THIS TIME
--- NOTE | 2019-08-08 17:30 | NUR ---
NO ACUTE CHANGE FROM PREVIOUS ASSESSMENT, VSS, CALL LIGHT IN REACH, NO NEEDS AT THIS TIME
--- NOTE | 2019-08-08 19:00 | NUR ---
Received patient sitting up in chair at bedside, assessment completed per flowsheet. Patient AO x4, answers appropriately/follows instructions. S1/S2 noted NSR with PVC on telemetry, rythmic and regular. Breathing is even/unlabored on 3L via NC with O2 sat 99%, lung sounds clear bilateral upper with crackles mid and diminished lower. R lateral CT x1 with bloody drainage, small air leak noted. Abdomen is round/soft with bowel sounds active x4, non-tender. Generalized edema/full ROM all extremities, all pulses palpable with cap refill < 3 sec. Denies pain or other needs at this time, see flwosheet for details. All VSS and will continue to monitor.
--- NOTE | 2019-08-08 21:00 | NUR ---
Patient sitting up in chair at bedside with family at bedside, discussed current status/treatment plan with all questions answered to satisfaction. HS meds given without difficulty, denies further need and will continue to monitor.
--- NOTE | 2019-08-08 23:00 | NUR ---
Reassessment completed per flowsheet, no changes noted from previous assessment. S1/S2 noted NSR with PVC on telemetry, rythmic and regular. Breathing is shallow on BiPAP 40% with O2 sat 98%, lung sounds clear bilateral upper with crackles mid and diminished lower. R lateral CT x1 to 20cm suction with small air leak, serosanguinous drainage noted. All pulses palpable with cap refill < 3 sec, skin warm/dry. Denies pain or other needs at this time, see flowsheet for details. All VSS and will continue to monitor.
[2019-08-09] VITALS (15 sets, daily range): BP systolic 114–158; BP diastolic 59–85
--- NOTE | 2019-08-09 01:00 | NUR ---
Patient resting in chair at bedside, no s/s of distress at this time. All VSS and will continue to monitor.
--- NOTE | 2019-08-09 03:00 | NUR ---
Reassessment completed per flowsheet, no changes noted from previous assessment. S1/S2 noted NSR with PVC on telemetry, rythmic and regular. Breathing is shallow on BiPAP 40% with O2 sat 98%, lung sounds clear bilateral upper and mid with diminished lower. R lateral chest CT x1 to 20 cm suction with small air leak noted, serosanguinous drainage. All pulses palpable with cap refill < 3 sec, skin warm/dry. Denies pain or other needs, see flowsheet for details. All VSS and will continue to monitor.
[2019-08-09 03:59] LABS: BASOPHILS 0.1 % (0-2); EOSINOPHILS 1.5 % (0-7); HEMOGLOBIN 11.4 g/dL (13.5-17.5); IMMATURE GRANULOCYTES 0.6 % (0-5); LYMPHOCYTES 17.2 % (15-50); MCH 28.4 pg (26.0-34.0); MCHC 30.8 g/dL (31.0-37.0); MCV 92.3 fL (80.0-100.0); MONOCYTES 13.5 % (2-11); NEUTROPHILS 67.1 % (40-80); PLATELET COUNT 257 10x3/uL (130-400); RBC 4.01 10x6/uL (4.20-6.10); RDW 14.7 % (11.5-14.5); WBC 8.9 10x3/uL (4.8-10.8)
[2019-08-09 04:22] LABS: ALKALINE PHOSPHATASE 76 U/L (46-116); ALT (SGPT) 22 U/L (10-68); CALC OSMOLALITY 283 mosm/kg (275-300); CALCIUM 8.2 mg/dL (8.5-10.1); CARBON DIOXIDE 34.1 mmol/L (21.0-32.0); CHLORIDE - SERUM 102 mmol/L (98-107); CREATININE - SERUM 0.8 mg/dL (0.6-1.3); GLUCOSE 194 mg/dL (74-106); POTASSIUM - SERUM 3.5 mmol/L (3.5-5.1); PROTEIN - SERUM 6.1 g/dL (6.4-8.2); SODIUM 139 mmol/L (136-145); UREA NITROGEN 15 mg/dL (7-18); eGFR NON AFRICAN AMERICAN > 90 mL/min (90-120)
--- NOTE | 2019-08-09 05:00 | NUR ---
Am labs collected without difficulty, Will treat per Electrolyte protocol as required. Denies pain or other needs, will continue to monitor.
--- NOTE | 2019-08-09 07:00 | NUR ---
REPORT RECEVIED FROM THE OFF GOING RN. SEE ASSESSMENT IN THE PTS FLOW SHEET. PT SITTING OOB IN HIS BEDSIDE CHAIR. PT DENIES PAIN AT THIS TIME. PT ON 3L VIA NC. CT NOTED TO LEFT LATERAL CHEST. CT CONNECTED TO 20 CM OF H2O SUCTION WITH AN AIR LEAK WHENEVER THE PT COUGHS. PT INSTRUCTED TO USE HIS IS 10X'S/H. PT PULLS ABOUT 1500 ON HIS IS. IV NOTED TO BILATERAL WRIST. SL. NO S/SX OF INFILTRATION NOTED. NSR ON THE MONITOR. VSS. BREAKFAST TRAY PROVIDED FOR THE PT. DENIES NEEDS/WANTS AT THIS TIME. CALL LIGHT IN REACH. WILL CONT POC.
--- NOTE | 2019-08-09 07:43 | NUR ---
Nutrition follow-up: Diet: Regular PO Intake 75-100% of meals Pt up to chair; breathing better CT in place +BM Wt: 336# RDN following.
--- NOTE | 2019-08-09 09:07 | NUR ---
AM MEDICATION GIVEN WITH NO ISSUES.
--- NOTE | 2019-08-09 09:20 | NUR ---
DR GOMEZ AT THE PTS BEDSIDE. PUT CT ON WATER SEAL. OK TO TRANSFER TO THE FLOOR IF OK WITH THE OTHER MD'S.
--- NOTE | 2019-08-09 10:30 | NUR ---
DR TELLEZ FOR PT TO TRANSFER TO THE FLOOR.
--- NOTE | 2019-08-09 12:30 | NUR ---
PT SITTING OOB AND EATING HIS LUNCH. VSS. CALL LIGHT IN REACH. WILL CONT POC.
--- NOTE | 2019-08-09 14:31 | NUR ---
pt assisted to the bsc. small formed bm. noted. pt assisted back into his chair. ct dressing changed, ct site cleaned and redressed. call light in reach. will cont poc.
--- NOTE | 2019-08-09 15:50 | NUR ---
RECEIVED PATIENT FROM ICU. ALERT AND ORIENTED. UP WITH ASSIST. NO C/O PAIN. NO S/S OF ACUTE DISTRESS NOTED. CHEST TUBE TO RIGHT CHEST, WATER SEALED. ON 2L O2, NC. IV TO LEFT FOREARM, SL. SITE PATENT WITHOUT REDNESS OR SWELLING. PATIENT DENIES ANY NEEDS AT THIS TIME. SITTING UP IN CHAIR. CALL LIGHT IN REACH. WILL CONTINUE TO MONITOR.
--- NOTE | 2019-08-09 15:59 | NUR ---
REPORT CALLED TO TRACE CISNEROS. PT TRANSFERED TO ROOM 2233 IN A STABLE CONDITION. ALL BELONGINS ACCOUNTED FOR.
--- NOTE | 2019-08-09 17:20 | NUR ---
OT NOTE: PT COMPLETED SITTING BALANCE/ENDURANCE WITH SBA. PT COMPLETED SIT TO STAND WITH CGA. PT COMPLETED FACE WASH WITH SETUP. PT COMPLETED UE AROM AX. PT IS MOTIVATED TO PARTICIPATE TO RETURN TO PLOF. THANK YOU, AGATA CRAIG
--- NOTE | 2019-08-09 18:36 | NUR ---
ALERT AND ORIENTED, SITTING UP IN CHAIR. NO C/O PAIN. NO S/S OF ACUTE DISTRESS NOTED. DENIES ANY NEEDS AT THIS TIME. CALL LIGHT IN REACH. WILL CONTINUE TO MONITOR.
--- NOTE | 2019-08-09 19:32 | NUR ---
SITTING UP IN RECLINER WITH TV ON, ABLE TO VOICE ALL NEEDS. DENIES ANY DISTRESS OR PAIN AT THIS TIME. STATES HE DOES WANT TO SLEEP UP IN RECLINER THIS SHIFT. ON 3LITERS NC WITH BIPAP DURING HS. CHEST TUBE TO RIGHT SIDE WITH OUTPUT TO DEVICE. HAS 1 PLUS PITTING EDEMA TO BLE, ELEVATING FEET NEEDED. WILL NOTE ANY CHANGE.
[2019-08-10 01:22] VITALS: BP 157/86
--- NOTE | 2019-08-10 01:40 | NUR ---
I have reviewed this patient and I concur with the Shift Assessment completed by the Licensed Practical Nurse today this shift.
--- NOTE | 2019-08-10 03:57 | NUR ---
HAS RESTED FAIR THIS SHIFT, BIPAP ALARM OF APNEIC EPISODES TIMES 2, RT ON UNIT WITH NO NEW ORDERS NOTED. SHOWS NO S/S OF ANY DISTRESS AT THIS TIME. BIPAP IS ON AND WORKING PROPERLY.
[2019-08-10 06:12] LABS: BASOPHILS 0.1 % (0-2); EOSINOPHILS 2.6 % (0-7); HEMATOCRIT 36.9 % (42.0-54.0); HEMOGLOBIN 11.2 g/dL (13.5-17.5); IMMATURE GRANULOCYTES 0.4 % (0-5); LYMPHOCYTES 20.2 % (15-50); MCH 28.1 pg (26.0-34.0); MCHC 30.4 g/dL (31.0-37.0); MCV 92.7 fL (80.0-100.0); MEAN PLATELET VOLUME 10.6 fL (7.4-10.4); MONOCYTES 14.1 % (2-11); NEUTROPHILS 62.6 % (40-80); PLATELET COUNT 284 10x3/uL (130-400); RBC 3.98 10x6/uL (4.20-6.10); RDW 14.6 % (11.5-14.5)
[2019-08-10 06:38] LABS: ALBUMIN 2.1 g/dL (3.4-5.0); ALKALINE PHOSPHATASE 75 U/L (46-116); ALT (SGPT) 18 U/L (10-68); BILIRUBIN - TOTAL 0.31 mg/dL (0.2-1.3); CALC OSMOLALITY 281 mosm/kg (275-300); CALCIUM 8.4 mg/dL (8.5-10.1); CARBON DIOXIDE 34.3 mmol/L (21.0-32.0); CHLORIDE - SERUM 102 mmol/L (98-107); CREATININE - SERUM 0.8 mg/dL (0.6-1.3); GLUCOSE 191 mg/dL (74-106); POTASSIUM - SERUM 3.9 mmol/L (3.5-5.1); SODIUM 138 mmol/L (136-145); UREA NITROGEN 14 mg/dL (7-18); eGFR NON AFRICAN AMERICAN > 90 mL/min (90-120)
--- NOTE | 2019-08-10 07:26 | NUR ---
ALERT AND ORIENTED, SITTING UP IN CHAIR. FAMILY AT BEDSIDE. NO C/O PAIN. NO S/S OF ACUTE DISTRESS NOTED. 3L 02,NC. BILATERAL WRIST IVS, SL. SITES PATENT WTIHOUT REDNESS OR SWELLING. CHEST TUBE TO RIGHT CHEST, WATER SEALED. BLE EDEMA 1+. PATIENT ACHS. DENIES ANY NEEDS AT THIS TIME. CALL LIGHT IN REACH. WILL CONTINUE TO MONITOR.
[2019-08-10 09:21] VITALS: BP 145/81
--- NOTE | 2019-08-10 11:30 | NUR ---
I have reviewed this patient and I concur with the Shift Assessment completed by the Licensed Practical Nurse today this shift.
[2019-08-10 13:10] VITALS: BP 138/78
--- NOTE | 2019-08-10 15:15 | NUR ---
I have reviewed this patient and I concur with the Shift Assessment completed by the Licensed Practical Nurse today this shift.
--- NOTE | 2019-08-10 15:20 | NUR ---
OT NOTE: PT PERFORMED VERY WELL TODAY. PT WAS SEEN PREVIOUSLY IN ICU. TODAY, PT UP IN CHAIR; STATES THAT HE IS FEELING BETTER. ABLE TO AMB TO BATHROOM WITHOUT ASSIST BUT UNSTEADY. PERFORMED TOILETING WITH CGA. AMB IN ROOM AND INTO HALLWAY WITH WALKER (ASSIST WITH DRAINAGE TUBE AND 02 ALSO PROVIDED). AMB GREATER THAN 120 FT. NO SOB NOTED. TRANSFERRED INTO CHAIR WITH CGA. SIMPLE GROOMING WITH WASH CLOTH AND SET UP. FAMILY AT BEDSIDE. KARLA ROCHA, OTR/L
[2019-08-10 16:21] VITALS: BP 129/69
--- NOTE | 2019-08-10 17:09 | NUR ---
OT NOTE: PT COMPLETED ADL MOB WITH CGA. PT COMPLETED SIT TO STAND WITH CGA. PT COMPLETED HYGIENE TASKS WITH SBA/CGA. PT STATED HIS WALKING ENDURANCE HAS IMPROVED. PT IS DOING WELL WITH FUNCTIONAL ACTIVITIES AND ADLS. THANK YOU, AGATA CRAIG
--- NOTE | 2019-08-10 19:51 | NUR ---
UP IN CHAIR WITH O2 AT 3L VIA NC. IV SITES TO BILATERAL WRISTS SALINE LOC AND PATENT VIA FLUSH. RIGHT CHEST TUBE ON WATER SEAL. ABLE TO VOICE ALL NEEDS. DENIES ANY DISTRESS AT THIS TIME. CONTINUES TO HAVE BLE PITTING EDEMA. WILL NOTE ANY CHANGE.
[2019-08-10 20:00] VITALS: BP 155/81
--- NOTE | 2019-08-10 21:43 | NUR ---
REQUESTED TO HAVE LINENS AND ITEMS FOR BATHING, ITEMS GIVEN. WILL NOTE ANY CHANGE.
--- NOTE | 2019-08-10 23:42 | NUR ---
REQUESTED BIPAP TO BE STARTED FOR HS. UP IN RECLINER, STATES HE IS COMFORTABLE. WILL NOTE ANY CHANGE.
[2019-08-11] VITALS: BP 143/85
--- NOTE | 2019-08-11 03:46 | NUR ---
I have reviewed this patient and I concur with the Shift Assessment completed by the Licensed Practical Nurse today this shift.
[2019-08-11 04:00] VITALS: BP 157/77
[2019-08-11 06:38] LABS: BASOPHILS 0.1 % (0-2); EOSINOPHILS 1.7 % (0-7); HEMATOCRIT 38.7 % (42.0-54.0); HEMOGLOBIN 11.7 g/dL (13.5-17.5); IMMATURE GRANULOCYTES 0.3 % (0-5); LYMPHOCYTES 24.5 % (15-50); MCH 28.1 pg (26.0-34.0); MCHC 30.2 g/dL (31.0-37.0); MCV 92.8 fL (80.0-100.0); MEAN PLATELET VOLUME 10.5 fL (7.4-10.4); MONOCYTES 13.6 % (2-11); NEUTROPHILS 59.8 % (40-80); PLATELET COUNT 336 10x3/uL (130-400); RBC 4.17 10x6/uL (4.20-6.10); RDW 14.7 % (11.5-14.5); WBC 8.9 10x3/uL (4.8-10.8)
--- NOTE | 2019-08-11 07:10 | NUR ---
ALERT AND ORIENTED, SITTING UP IN CHAIR. FAMILY AT BEDSIDE. NO C/O PAIN. NO S/S OF ACUTE DISTRESS NOTED. RIGHT CHEST TUBE, WATER SEALED. ON 3L 02, NC. BILATERAL IVS TO WRIST, SL. SITES PATENT WITHOUT REDNESS OR SWELLING. PATIENT DENIES ANY NEEDS AT THIS TIME. CALL LIGHT IN REACH. WILL CONTINUE TO MONITOR.
[2019-08-11 09:50] VITALS: BP 179/87
--- NOTE | 2019-08-11 09:52 | MORECARE ---
CASE MANAGEMENT DISCHARGE SUMMARY PATIENT: TIKI PIERSON UNIT: [id number] ADM DATE: 07/31/19 AGE: 59 : 56 SEX: M ROOM/BED: D.2233 AUTHOR: YASSINE WESTON PHYSICIAN: REFERRING PHYSICIAN: JULIANA BOO MD DATE OF SERVICE: 08/11/19 Discharge Plan Patient Name: TIKI PIERSON Facility: [facility]:[place] : 1960 Planned Disposition: Home with Home Health Anticipated Discharge Date: Discharge Date: Expected LOS: Initial Reviewer: [email or web address] Initial Review Date: 07/31/2019 Generated: 08/11/19 10:52 am Comments DCP- Discharge Planning Updated by [email or web address]: Soumya Villaliss on 08/11/19 8:[address] Met with and patient today per her request. She would like a guest tray, nurse customer service manager notified. CM discussed rehab prescreening, he states he does not want to go to rehab. States he would like to go home with [facility] in [place]. They have the personal care at this time that comes out daily for house keeping and "anything that I need." VERENA for [facility] in [place] and [facility] [place] for possible home O2 and Nebulizer needs. He states his sleep study was 20 years ago or so, he will need a sleep study set up at discharge. He states he would like to have it done in [place]. CM will continue to follow and assist with discharge planning/needs. DCP- Discharge Planning Updated by [email or web address]: Carmen Velez on 08/01/19 12:[address] Patient Name: TIKI PIERSON Admission Status: ER Accout number: [id number] Admission Date: 07-31-2019 : 1960 Admission Diagnosis: Attending: JULIANA BOO Current LOS: 1 Anticipated DC Date: Planned Disposition: Home with Home Health Primary Insurance: [facility] [employer] Discharge Planning Comments: CM met with patient and his significant other Cha Altaf to complete initial dc planning assessment. CM educated patient on the CM role and verbal consent given by Cha to complete assessment. CM verified patient's address, phone number, and emergency contact phone numbers. Patient lives at home with Cha who reports patient is independent of his care. Patient currently has [facility] in [place] and wishes to resume at discharge. VERENA form signed by Cha for resumption of [facility]. Signed form placed in chart and signed form given to Cha. At discharge patient plans to return home and feels this is a safe discharge. Cha denied further known discharge needs at this time. Cha reports she will transport him home at time of discharge. Patient appears to be sleeping during assessment and never acknowledged cm in room. Patient will need Physical Therapy once MD feels patient is medically stable to participate. CM will continue to follow and will assist as needed with dc plans/needs. District Representative: Carmen Velez DCPIA - Discharge Planning Initial Assessment Updated by [email or web address]: Carmen Velez on 08/01/19 1:26 pm * Is the patient Alert and Oriented? No * How many steps to enter\\exit or inside your home? * PCP Monika [facility] in [place] * Pharmacy [facility] * Preadmission Environment Home with Family * ADLs Independent * Equipment Cane * List name and contact numbers for known caregivers / representatives who currently or will assist patient after discharge: CHA ORELLANA - SIGNIFICANT OTHER- [phone] * Verbal permission to speak to the caregivers and representatives has been obtained from the patient. N/A * Community resources currently utilized Home Health * Please name any agencies selected above. [facility] * Additional services required to return to the preadmission environment? No * Can the patient safely return to the preadmission environment? Yes * Has this patient been hospitalized within the prior 30 days at any hospital? No Coverage Notice Reviewer: [email or web address] Lynne Harrison Notice Issued Date-Time: 08/11/2019 9:35 Notice Type: Patient Choice Letter Notice Delivered To: Patient Relationship to Patient: Self Pit Operator Name: Delivery Method: HAND - Hand Delivered Vaishnavi Days: Prior Verbal Notification: Recipient Understood Notice: Yes Recipient Signature: Yes Med Rec Note Co-signed by Attending: Coverage Notice Comment: VERENA for [facility] [place] and [facility] in [place] Last DP export: 08/01/19 12:38 Patient Name: TIKI PIERSON Page [id number] at 0952 All edits/amendments must be made on the electronic document DICTATION DATE: 08/11/19951 AUTO DESIGN DETAILER: GERHARD 08/11/19951 RPT#: [id number] DC DATE: STATUS: ADM IN [facility] [address] [place] [address] END OF REPORT
--- NOTE | 2019-08-11 11:38 | NUR ---
OT NOTE: PT PERFORMED WELL TODAY. PERFORMED TOILETING WITH CGA; IN ROOM AMB WITH WALKER AND CGA( REQUIRES ASSIST WITH 02 TANK AND DRAINAGE TUBE) . MAX ASSIST TO JANNETTE SOCKS. INCREASED EDEMA NOTED IN B LES/FEET. SIMPLE GROOMING TASKS WITH SET UP. ABLE TO AMB 250 FT WITH WALKER AND CGA TO IMPROVE FUNCTIONAL ENDURANCE. VERY MINIMAL SOB WHEN RETURNED TO ROOM. PT REPORTED THAT HE WAS ONLY ABLE TO WALK A FEW FT, PRIOR TO HOSPITALIZATION, BEFORE HE WAS VERY SOB. KARLA ROCHA, OTR/L
--- NOTE | 2019-08-11 12:03 | NUR ---
Rehab Note- Per CM the patient wants to discharge home when able instead of an acute inpatient rehab stay. Thank you for this referral! Soila Reese RN Clinical Liaison, [facility] Rehab
--- NOTE | 2019-08-11 16:35 | MORECARE ---
CASE MANAGEMENT DISCHARGE SUMMARY PATIENT: TIKI PIERSON UNIT: [id number] ADM DATE: 07/31/19 AGE: 59 : 56 SEX: M ROOM/BED: D.2233 AUTHOR: YASSINE WESTON PHYSICIAN: REFERRING PHYSICIAN: JULIANA BOO MD DATE OF SERVICE: 08/11/19 Discharge Plan Patient Name: TIKI PIERSON Facility: [facility]:[place] : 1960 Planned Disposition: Home with Home Health Anticipated Discharge Date: Discharge Date: Expected LOS: Initial Reviewer: [email or web address] Initial Review Date: 07/31/2019 Generated: 08/11/19 5:34 pm Comments DCP- Discharge Planning Updated by [id number]: Soumya Villaliss on 08/11/19 8:[address] Met with and patient today per her request. She would like a guest tray, nurse divisional merchandising manager notified. CM discussed rehab prescreening, he states he does not want to go to rehab. States he would like to go home with [facility] in [place]. They have the personal care at this time that comes out daily for house keeping and "anything that I need." VERENA for [facility] in [place] and [facility] for possible home O2 and Nebulizer needs. He states his sleep study was 20 years ago or so, he will need a sleep study set up at discharge. He states he would like to have it done in [place]. CM will continue to follow and assist with discharge planning/needs. DCP- Discharge Planning Updated by [email or web address]: Carmen Velez on 08/01/19 12:[address] Patient Name: TIKI PIERSON Admission Status: ER Accout number: [id number] Admission Date: 07-31-2019 : 1960 Admission Diagnosis: Attending: JULIANA BOO Current LOS: 1 Anticipated DC Date: Planned Disposition: Home with Home Health Primary Insurance: [facility] [employer]UT[employer] Discharge Planning Comments: CM met with patient and his significant other Cha Altaf to complete initial dc planning assessment. CM educated patient on the CM role and verbal consent given by Cha to complete assessment. CM verified patient's address, phone number, and emergency contact phone numbers. Patient lives at home with Cha who reports patient is independent of his care. Patient currently has [facility] in [place] and wishes to resume at discharge. VERENA form signed by Cha for resumption of [facility]. Signed form placed in chart and signed form given to Cha. At discharge patient plans to return home and feels this is a safe discharge. Cha denied further known discharge needs at this time. Cha reports she will transport him home at time of discharge. Patient appears to be sleeping during assessment and never acknowledged cm in room. Patient will need Physical Therapy once MD feels patient is medically stable to participate. CM will continue to follow and will assist as needed with dc plans/needs. Community Service Aide: Carmen Velez DCPIA - Discharge Planning Initial Assessment Updated by [email or web address]: Carmen Velez on 08/01/19 1:26 pm * Is the patient Alert and Oriented? No * How many steps to enter\\exit or inside your home? * PCP Monika [facility] in [place] * Pharmacy [facility] * Preadmission Environment Home with Family * ADLs Independent * Equipment Cane * List name and contact numbers for known caregivers / representatives who currently or will assist patient after discharge: CHA ORELLANA - SIGNIFICANT OTHER- [phone] * Verbal permission to speak to the caregivers and representatives has been obtained from the patient. N/A * Community resources currently utilized Home Health * Please name any agencies selected above. [facility] * Additional services required to return to the preadmission environment? No * Can the patient safely return to the preadmission environment? Yes * Has this patient been hospitalized within the prior 30 days at any hospital? No External Providers External Provider: LACEYPadmaja Next Contact Date: Service Request Date: Service Type: Resolution: Reviewer: Comments: Coverage Notice Reviewer: [email or web address] Lynne Harrison Notice Issued Date-Time: 08/11/2019 9:35 Notice Type: Patient Choice Letter Notice Delivered To: Patient Relationship to Patient: Self Bi Report Developer Name: Delivery Method: HAND - Hand Delivered Vaishnavi Days: Prior Verbal Notification: Recipient Understood Notice: Yes Recipient Signature: Yes Med Rec Note Co-signed by Attending: Coverage Notice Comment: VERENA for [facility] and [facility] in [place] Last DP export: 08/11/19 8:52 Patient Name: TIKI PIERSON Page [id number] at 1635 All edits/amendments must be made on the electronic document DICTATION DATE: 08/11/191633 MODEL MAKER: GERHARD 08/11/191633 RPT#: [id number] DC DATE: STATUS: ADM IN [facility] [address] [place] [address] END OF REPORT
--- NOTE | 2019-08-11 16:43 | MORECARE ---
CASE MANAGEMENT DISCHARGE SUMMARY PATIENT: TIKI PIERSON UNIT: [id number] ADM DATE: 07/31/19 AGE: 59 : 56 SEX: M ROOM/BED: D.2233 AUTHOR: YASSINE WESTON PHYSICIAN: REFERRING PHYSICIAN: JULIANA BOO MD DATE OF SERVICE: 08/11/19 Discharge Plan Patient Name: TIKI PIERSON Facility: [facility]:[place] : 1960 Planned Disposition: Home with Home Health Anticipated Discharge Date: Discharge Date: Expected LOS: Initial Reviewer: [email or web address] Initial Review Date: 07/31/2019 Generated: 08/11/19 5:43 pm Comments DCP- Discharge Planning Updated by [id number]: Soumya Villaliss on 08/11/19 3:[address] PATIENT'S RESTING ROOM AIR SAT IS 78%. OXYGEN BACK ON AT 2 LITERS AND SAT IS 98%. OXYGEN ORDER FAXED TO [facility] [place]. THEY WILL DELIVER PORTABLE TANK THIS WEEKEND IF NEEDED. CM WILL CONTINUE TO FOLLOW AND ASSIST WITH DISCHARGE PLANNING/NEEDS. DCP- Discharge Planning Updated by [email or web address]: Soumya Harrison on 08/11/19 8:[address] Met with and patient today per her request. She would like a guest tray, nurse manager infusion notified. CM discussed rehab prescreening, he states he does not want to go to rehab. States he would like to go home with [facility] in [place]. They have the personal care at this time that comes out daily for house keeping and "anything that I need." VERENA for [facility] in [place] and [facility] for possible home O2 and Nebulizer needs. He states his sleep study was 20 years ago or so, he will need a sleep study set up at discharge. He states he would like to have it done in [place]. CM will continue to follow and assist with discharge planning/needs. DCP- Discharge Planning Updated by [email or web address]: Carmen Velez on 08/01/19 12:[address] Patient Name: TIKI PIERSON Admission Status: ER Accout number: [id number] Admission Date: 07-31-2019 : 1960 Admission Diagnosis: Attending: JULIANA BOO Current LOS: 1 Anticipated DC Date: Planned Disposition: Home with Home Health Primary Insurance: [facility] MEDICARE SOLUTIONS Discharge Planning Comments: CM met with patient and his significant other Cha Solitario to complete initial dc planning assessment. CM educated patient on the CM role and verbal consent given by Cha to complete assessment. CM verified patient's address, phone number, and emergency contact phone numbers. Patient lives at home with Cha who reports patient is independent of his care. Patient currently has [facility] in [place] and wishes to resume at discharge. VERENA form signed by Cha for resumption of [facility]. Signed form placed in chart and signed form given to Cha. At discharge patient plans to return home and feels this is a safe discharge. Cha denied further known discharge needs at this time. Cha reports she will transport him home at time of discharge. Patient appears to be sleeping during assessment and never acknowledged cm in room. Patient will need Physical Therapy once MD feels patient is medically stable to participate. CM will continue to follow and will assist as needed with dc plans/needs. Test Design Engineer: Carmen Velez DCPIA - Discharge Planning Initial Assessment Updated by [email or web address]: Carmen Velez on 08/01/19 1:26 pm * Is the patient Alert and Oriented? No * How many steps to enter\\exit or inside your home? * PCP Monika [facility] in [place] * Pharmacy [facility] * Preadmission Environment Home with Family * ADLs Independent * Equipment Cane * List name and contact numbers for known caregivers / representatives who currently or will assist patient after discharge: CHA SOLITARIO - SIGNIFICANT OTHER- [phone] * Verbal permission to speak to the caregivers and representatives has been obtained from the patient. N/A * Community resources currently utilized Home Health * Please name any agencies selected above. [facility] - [place] [facility] * Additional services required to return to the preadmission environment? No * Can the patient safely return to the preadmission environment? Yes * Has this patient been hospitalized within the prior 30 days at any hospital? No Coverage Notice Reviewer: [id number] Lynne Harrison Notice Issued Date-Time: 08/11/2019 9:35 Notice Type: Patient Choice Letter Notice Delivered To: Patient Relationship to Patient: Self Chairman And Ceo Name: Delivery Method: HAND - Hand Delivered Vaishnavi Days: Prior Verbal Notification: Recipient Understood Notice: Yes Recipient Signature: Yes Med Rec Note Co-signed by Attending: Coverage Notice Comment: VERENA for [facility] and [facility] in [place] Last DP export: 08/11/19 3:35 Patient Name: TIKI PIERSON Page [phone] at 1643 All edits/amendments must be made on the electronic document DICTATION DATE: 08/11/191641 PULP TESTER: GERHARD 08/11/191641 RPT#: [id number] DC DATE: STATUS: ADM IN [facility] [address] [place] [address] END OF REPORT
--- NOTE | 2019-08-11 16:51 | MORECARE ---
CASE MANAGEMENT DISCHARGE SUMMARY PATIENT: TIKI PIERSON UNIT: [id number] ADM DATE: 07/31/19 AGE: 59 : 56 SEX: M ROOM/BED: D.2233 AUTHOR: YASSINE WESTON PHYSICIAN: REFERRING PHYSICIAN: JULIANA BOO MD DATE OF SERVICE: 08/11/19 Discharge Plan Patient Name: TIKI PIERSON Facility: [facility]:[place] : 1960 Planned Disposition: Home with Home Health Anticipated Discharge Date: Discharge Date: Expected LOS: Initial Reviewer: [email or web address] Initial Review Date: 07/31/2019 Generated: 08/11/19 5:51 pm Comments DCP- Discharge Planning Updated by [id number]: Soumya Villaliss on 08/11/19 3:[address] PATIENT'S RESTING ROOM AIR SAT IS 78%. OXYGEN BACK ON AT 2 LITERS AND SAT IS 98%. OXYGEN ORDER FAXED TO [facility]. THEY WILL DELIVER PORTABLE TANK THIS WEEKEND IF NEEDED. CM WILL CONTINUE TO FOLLOW AND ASSIST WITH DISCHARGE PLANNING/NEEDS. DCP- Discharge Planning Updated by [id number]: Soumya Harrison on 08/11/19 8:[address] Met with and patient today per her request. She would like a guest tray, nurse band manager notified. CM discussed rehab prescreening, he states he does not want to go to rehab. States he would like to go home with [facility] in [place]. They have the personal care at this time that comes out daily for house keeping and "anything that I need." VERENA for [facility] in [place] and [facility] for possible home O2 and Nebulizer needs. He states his sleep study was 20 years ago or so, he will need a sleep study set up at discharge. He states he would like to have it done in [place]. CM will continue to follow and assist with discharge planning/needs. DCP- Discharge Planning Updated by [email or web address]: Carmen Velez on 08/01/19 12:[address] Patient Name: TIKI PIERSON Admission Status: ER Accout number: [id number] Admission Date: 07-31-2019 : 1960 Admission Diagnosis: Attending: JULIANA BOO Current LOS: 1 Anticipated DC Date: Planned Disposition: Home with Home Health Primary Insurance: [facility] MEDICARE SOLUTIONS Discharge Planning Comments: CM met with patient and his significant other Cha Solitario to complete initial dc planning assessment. CM educated patient on the CM role and verbal consent given by Cha to complete assessment. CM verified patient's address, phone number, and emergency contact phone numbers. Patient lives at home with Cha who reports patient is independent of his care. Patient currently has [facility] in [place] and wishes to resume at discharge. VERENA form signed by Cha for resumption of [facility]. Signed form placed in chart and signed form given to Cha. At discharge patient plans to return home and feels this is a safe discharge. Cha denied further known discharge needs at this time. Cha reports she will transport him home at time of discharge. Patient appears to be sleeping during assessment and never acknowledged cm in room. Patient will need Physical Therapy once MD feels patient is medically stable to participate. CM will continue to follow and will assist as needed with dc plans/needs. Alum Mixer: Carmen Velez DCPIA - Discharge Planning Initial Assessment Updated by [id number]: Carmen Velez on 08/01/19 1:26 pm * Is the patient Alert and Oriented? No * How many steps to enter\\exit or inside your home? * PCP Monika [facility] in [place] * Pharmacy [facility] * Preadmission Environment Home with Family * ADLs Independent * Equipment Cane * List name and contact numbers for known caregivers / representatives who currently or will assist patient after discharge: CHA SOLITARIO - SIGNIFICANT OTHER- [phone] * Verbal permission to speak to the caregivers and representatives has been obtained from the patient. N/A * Community resources currently utilized Home Health * Please name any agencies selected above. [employer] - [place] [facility] * Additional services required to return to the preadmission environment? No * Can the patient safely return to the preadmission environment? Yes * Has this patient been hospitalized within the prior 30 days at any hospital? No Coverage Notice Reviewer: [id number] Lynne Harrison Notice Issued Date-Time: 08/11/2019 9:35 Notice Type: Patient Choice Letter Notice Delivered To: Patient Relationship to Patient: Self Finished Garment Inspector Name: Delivery Method: HAND - Hand Delivered Vaishnavi Days: Prior Verbal Notification: Recipient Understood Notice: Yes Recipient Signature: Yes Med Rec Note Co-signed by Attending: Coverage Notice Comment: VERENA for [facility] and [facility] in [place] Last DP export: 08/11/19 3:43 Patient Name: TIKI PIERSON Page [phone] at 1651 All edits/amendments must be made on the electronic document DICTATION DATE: 08/11/191650 WOOD TILE INSTALLER: GERHARD 08/11/191650 RPT#: [id number] DC DATE: STATUS: ADM IN [facility] [address] [place] [address] END OF REPORT
--- NOTE | 2019-08-11 16:56 | NUR ---
I have reviewed this patient and I concur with the Shift Assessment completed by the Licensed Practical Nurse today this shift.
[2019-08-11 17:07] VITALS: BP 156/89
--- NOTE | 2019-08-11 18:50 | NUR ---
ALERT AND ORIENTED, RESTING IN BED. NO C/O PAIN. NO S/S OF ACUTE DISTRESS NOTED. CHANGED DRESSING TO CHEST TUBE, REMOVED OLD DRESSING. APPLIED DRAIN SPONGES, COVERED WITH 4X4S, AND SECURED WITH TEGADERM. DENIES ANY NEEDS AT THIS TIME. CALL LIGHT IN REACH.
[2019-08-11 20:00] VITALS: BP 137/83
--- NOTE | 2019-08-11 20:00 | NUR ---
A/O WITH NO SIGNS OF ACUTE DISTRESS. IV TO THE GRZEGORZ WRIST WITH NO REDNESS OR SWELLING. CHEST TUBE NOTED TO THE RT SIDE OF THE CHEST. LIGHT PINK DISCHARGE NOTED AND CHANGED CHEST TUNE SYSTEM AT CHANGE OF SHIFT. CHEST TUBE SITE CDI. DENIES PAIN OR OTHER NEEDS AT THIS TIME. CONTINUE PLAN OF CARE.
[2019-08-12] VITALS (7 sets, daily range): BP systolic 127–173; BP diastolic 55–86
[2019-08-12 05:24] LABS: BASOPHILS 0.3 % (0-2); EOSINOPHILS 1.9 % (0-7); HEMATOCRIT 35.7 % (42.0-54.0); HEMOGLOBIN 10.9 g/dL (13.5-17.5); IMMATURE GRANULOCYTES 0.4 % (0-5); LYMPHOCYTES 25.6 % (15-50); MCH 28.2 pg (26.0-34.0); MCHC 30.5 g/dL (31.0-37.0); MCV 92.5 fL (80.0-100.0); MEAN PLATELET VOLUME 10.1 fL (7.4-10.4); MONOCYTES 15.5 % (2-11); NEUTROPHILS 56.3 % (40-80); PLATELET COUNT 305 10x3/uL (130-400); RBC 3.86 10x6/uL (4.20-6.10); RDW 14.7 % (11.5-14.5); WBC 7.3 10x3/uL (4.8-10.8)
[2019-08-12 05:56] LABS: CALC OSMOLALITY 280 mosm/kg (275-300); CALCIUM 8.5 mg/dL (8.5-10.1); CARBON DIOXIDE 34.1 mmol/L (21.0-32.0); CHLORIDE - SERUM 102 mmol/L (98-107); CREATININE - SERUM 0.9 mg/dL (0.6-1.3); GLUCOSE 169 mg/dL (74-106); POTASSIUM - SERUM 3.8 mmol/L (3.5-5.1); SODIUM 138 mmol/L (136-145); UREA NITROGEN 15 mg/dL (7-18); eGFR NON AFRICAN AMERICAN > 90 mL/min (90-120)
--- NOTE | 2019-08-12 09:30 | NUR ---
CALLED PHARMACY ABOUT PATIENTS JOEY OLIVEIRA
--- NOTE | 2019-08-12 10:40 | NUR ---
CALLED ABOUT PT JOEY FRANKLIN. IN ROOM. DISCONTINUED IV THERAPY FROM LEFT WRIST. CAUSED PAIN. CL IN REACH. NO NEEDS AT THIS TIME. WCTM
--- NOTE | 2019-08-12 10:59 | NUR ---
DAUGHTER CEE CALLED. PERMISSION GIVEN FOR ME TO TALK TO HER. WANTS TO KNOW HOW HE IS. I SAID HE IS STILL A LITTLE CONFUSED. DECIDED TO WAIT TO TALK TO HER FATHER.
--- NOTE | 2019-08-12 12:32 | NUR ---
OT NOTE: PT UP IN CHAIR. REPORTED FEELING BETTER. TRANSFERS WITH MIN ASSIST AND USE OF WALKER; AMB TO BATHROOM WITHOUT WALKER BUT HOLDS TO DOOR FRAME AND GRAB BAR ; INDPE WITH TOILET HYGIENE. KARLA ROCHA, OTR/L
--- NOTE | 2019-08-12 21:45 | NUR ---
PT ALERT & ORIENTED. FSBS 364 - GAVE 24 UNITS INSULIN PER SS. PT SITTING UP IN CHAIR. RIGHT MIDAXILLARY CHEST TUBE WITH SEROUS DRAINAGE. PRODUCTIVE COUGH WITH CLEAR SPUTUM. NO NEEDS. WILL CONTINUE TO MONITOR.
[2019-08-13 04:00] VITALS: BP 132/78
[2019-08-13 05:24] LABS: BASOPHILS 0.1 % (0-2); EOSINOPHILS 2.2 % (0-7); HEMOGLOBIN 11.2 g/dL (13.5-17.5); IMMATURE GRANULOCYTES 0.1 % (0-5); LYMPHOCYTES 21.8 % (15-50); MCHC 30.3 g/dL (31.0-37.0); MCV 92.5 fL (80.0-100.0); MEAN PLATELET VOLUME 9.9 fL (7.4-10.4); MONOCYTES 15.5 % (2-11); NEUTROPHILS 60.3 % (40-80); PLATELET COUNT 298 10x3/uL (130-400); RDW 14.6 % (11.5-14.5); WBC 8.1 10x3/uL (4.8-10.8)
[2019-08-13 05:36] LABS: CALC OSMOLALITY 280 mosm/kg (275-300); CALCIUM 8.8 mg/dL (8.5-10.1); CARBON DIOXIDE 35.2 mmol/L (21.0-32.0); CHLORIDE - SERUM 103 mmol/L (98-107); CREATININE - SERUM 0.9 mg/dL (0.6-1.3); SODIUM 140 mmol/L (136-145); UREA NITROGEN 16 mg/dL (7-18); eGFR NON AFRICAN AMERICAN > 90 mL/min (90-120)
[2019-08-13 05:37] LABS: GLUCOSE 110 mg/dL (74-106)
[2019-08-13 05:38] VITALS: BP 148/74
[2019-08-13 08:25] VITALS: BP 157/84
--- NOTE | 2019-08-13 09:00 | NUR ---
ALERT AND ORIENTED X3 WITH PRESENT. SITTING UP IN RELCINER WITH FEET ELEVATED. EDEMA 3+ NOTED TO BLE WITH PEDAL PULSES NOTED WITH CAP REFILL<3 SEC. ABOMEN OBESE WITH PANNUS. CHEST TUBE INTACT TO RT. MID AXILLARY WITH CRACKLES NOTED TO RLQ POSTERIOR. HRRR WITH O2 2.5 L/MIN. DENIES ANY PAIN OR DISCOMFORT AT THIS TIME AND ENCOURAGED TO USE CALL LIGHT FOR ASSIST.
[2019-08-13 12:07] VITALS: BP 165/80
[2019-08-13 16:56] VITALS: BP 144/72
[2019-08-13 20:00] VITALS: BP 150/75
[2019-08-14 04:00] VITALS: BP 174/73
[2019-08-14 04:48] LABS: BASOPHILS 0.1 % (0-2); EOSINOPHILS 1.8 % (0-7); HEMATOCRIT 34.8 % (42.0-54.0); HEMOGLOBIN 10.5 g/dL (13.5-17.5); IMMATURE GRANULOCYTES 0.3 % (0-5); LYMPHOCYTES 22.3 % (15-50); MCH 27.9 pg (26.0-34.0); MCHC 30.2 g/dL (31.0-37.0); MCV 92.6 fL (80.0-100.0); MEAN PLATELET VOLUME 10.5 fL (7.4-10.4); MONOCYTES 14.5 % (2-11); PLATELET COUNT 318 10x3/uL (130-400); RBC 3.76 10x6/uL (4.20-6.10); RDW 14.5 % (11.5-14.5); WBC 7.7 10x3/uL (4.8-10.8)
[2019-08-14 05:13] LABS: CALC OSMOLALITY 283 mosm/kg (275-300); CALCIUM 8.4 mg/dL (8.5-10.1); CARBON DIOXIDE 33.4 mmol/L (21.0-32.0); CHLORIDE - SERUM 101 mmol/L (98-107); POTASSIUM - SERUM 4.3 mmol/L (3.5-5.1); SODIUM 139 mmol/L (136-145); UREA NITROGEN 18 mg/dL (7-18); eGFR NON AFRICAN AMERICAN 81 mL/min (90-120)
[2019-08-14 05:16] LABS: GLUCOSE 164 mg/dL (74-106)
[2019-08-14 08:48] VITALS: BP 156/77
--- NOTE | 2019-08-14 09:00 | NUR ---
ASSESSMENT PER FLOW SHEET. PT IS WITHOUT DISTRESS.DENIES NEEDS.CALL LIGHT IN REACH.FAMILY AT [facility].
--- NOTE | 2019-08-14 13:12 | NUR ---
Nutrition follow-up: Diet: Consistent CHO PO Intake 100% of meals; pts is also eating food off of pt tray Labs reviewed Wt: 345# RDN following.
[2019-08-14 13:30] VITALS: BP 158/68
--- NOTE | 2019-08-14 14:19 | NUR ---
OT NOTE: PT DOING WELL; SIT TO STAND WITH WALKER AND CGA; REQUIRES ASSIST WITH ALL TUBES AND 02. IN ROOM AMBULATION WITH CGA AND USE OF WALKER. PT REPORTS THAT HE WAS GOING TO BATHROOM THIS AM AND ALMOST FELL DUE TO LEGS BEING STIFF. EDUCATION ON SAFETY AND PT PROVIDED WITH WALKER FOR IN ROOM USE. INSTRUCTED PT TO USE WALKER FOR SAFETY WHILE GOING TO BATHROOM. AMB THROUGHOUT HALLWAY WITH CGA; MILD REPORTS OF PAIN TO B FEET DUE TO SEVERE EDEMA. KARLA ROCHA, OTR/L
[2019-08-14 16:51] VITALS: BP 155/74
--- NOTE | 2019-08-14 19:50 | NUR ---
SITTING UP IN CHAIR. AT BEDSIDE. ALERT AND ORIENTED X4. RESP IRREG. DENIES SOB. O2 @ 2L/NC. RT CHEST TUBE NOTED TO WATER SEAL WITH SEROSANGUINEOUS FLUID IN COLLECTION CHAMBER. BRUISES NOTED TO BUE. 3+ EDEMA NOTED TO BLE WHICH ARE ELEVATED IN CHAIR. PROD COUGH WITH CLEAR SPUTUM. SALINE LOCK NOTED TO RT FOREARM. AT BEDSIDE. DENIES PAIN. CL IN REACH. NO ACUTE DISTRESS.
--- NOTE | 2019-08-14 19:51 | NUR ---
REMAINS WITHOUT CHNAGE FROM INITIAL SHIFT ASSESSMENT. HAS BEEN UP IN CHAIR ALL DAY.CONT PLAN OF CARE
[2019-08-14 20:00] VITALS: BP 116/77
[2019-08-15 00:09] LABS: APPEARANCE CLEAR (CLEAR); BILIRUBIN NEGATIVE (NEGATIVE); COLOR YELLOW (YELLOW); GLUCOSE NEGATIVE (NEGATIVE); KETONE NEGATIVE (NEGATIVE); NITRITE NEGATIVE (NEGATIVE); PROTEIN 2+ mg/dL (NEGATIVE); SPECIFIC GRAVITY 1.005 (1.005-1.020); UROBILINOGEN NORMAL (NORMAL)
[2019-08-15 00:10] LABS: BACTERIA FEW /hpf (NEGATIVE); EPITHELIAL CELLS 0-5 /hpf (0-5); RED CELLS - URINE 0-5 /hpf (0-5); WHITE CELLS - URINE 0-5 /hpf (NEGATIVE)
--- NOTE | 2019-08-15 01:37 | NUR ---
SITTING UP IN CHAIR. STATES HE IS GOING TO SLEEP IN CHAIR. BIPAP IN USE. CL IN REACH.
[2019-08-15 06:53] LABS: BASOPHILS 0.1 % (0-2); HEMATOCRIT 36.7 % (42.0-54.0); HEMOGLOBIN 11.1 g/dL (13.5-17.5); IMMATURE GRANULOCYTES 0.4 % (0-5); LYMPHOCYTES 23.4 % (15-50); MCHC 30.2 g/dL (31.0-37.0); MCV 92.4 fL (80.0-100.0); MEAN PLATELET VOLUME 11.1 fL (7.4-10.4); MONOCYTES 12.7 % (2-11); NEUTROPHILS 61.4 % (40-80); PLATELET COUNT 338 10x3/uL (130-400); RBC 3.97 10x6/uL (4.20-6.10); RDW 14.8 % (11.5-14.5); WBC 7.9 10x3/uL (4.8-10.8)
[2019-08-15 06:57] LABS: APTT 29.7 SECONDS (22.8-39.4); INR 1.04 (0.85-1.17); PROTIME 13.1 SECONDS (11.6-15.0)
[2019-08-15 07:20] LABS: ALBUMIN 2.3 g/dL (3.4-5.0); ANION GAP 7.8 mmol/L (8-16); BILIRUBIN - TOTAL 0.24 mg/dL (0.2-1.3); CALCIUM 8.8 mg/dL (8.5-10.1); CARBON DIOXIDE 36.1 mmol/L (21.0-32.0); CREATININE - SERUM 1.1 mg/dL (0.6-1.3); POTASSIUM - SERUM 4.9 mmol/L (3.5-5.1); PROTEIN - SERUM 6.1 g/dL (6.4-8.2)
--- NOTE | 2019-08-15 09:00 | NUR ---
ASSESSMENT PER FLOW SHEET. PT IS WITHOUT DISTRESS.CALL LIGHT IN REACH.
[2019-08-15 09:09] VITALS: BP 161/77
[2019-08-15 12:53] VITALS: BP 132/69
[2019-08-15 17:02] VITALS: BP 152/65
--- NOTE | 2019-08-15 17:07 | NUR ---
OT NOTE: PT EDUCATED ON POSITIONING TECHNIQUES TO DECREASE EDEMA. NURSING AWARE OF LE EDEMA. THANK YOU, AGATA CRAIG
--- NOTE | 2019-08-15 18:37 | NUR ---
PT REMAINS WITHOUT DISTRESS. HE DECLINES TO SIGN CONSENTS FOR PROCEDURES IN AM. HE WISHES TO SPEAK WITH DR. JASON PALACIOS. PROCEDURE ON 08/16/19.PT HAS HAD 150CC OF RED TINTED DRAINAGE OUT OF RIGHT CHEST TUBE TODAY.CONT PLAN OF CARE
--- NOTE | 2019-08-15 20:00 | NUR ---
SITTING UP IN CHAIR WITH LEGS ELEVATED. ALERT AND ORIENTED X4. REFUSES TO SIGN CONSENTS FOR MULTIPLE PROCEDURES TOMORROW UNTIL HE HAS HIS QUESTIONS ANSWERED PER . PT QUITE ANXIOUS ABOUT THIS. INSTRUCTED ON NPO AFTER MIDNIGHT STATUS. HE VERBALIZED UNDERSTANDING. EXPLAINED TO THAT SHE NEEDS TO CALL STAFF TO E[facility]TY [facility] SINCE PT IS ON STRICT I/O. SHE VERBALIZED UNDERSTANDING OF THIS. RESP IRREG, SOB IWTH MIN EXERTION. O2 @ 2L/HFC. EDEMA NOTED TO BLE. BRUISES NOTED TO BUE. CHEST TUBE TO RT CHEST IS TO WATER SEAL WITH SEROSANGUINEOUS FLUID IN CHAMBER. SALINE LOCK NOTED TO RT FOREARM. INFORMED TECHNICAL SUPPORT ENGINEER OF DAILY WT, STRICT I/O, B/P CHECKS IN RT AND LT ARM, AND NEED FOR CLIP/SHAVE PREP AND HIBACLENS. LALO, TECHNICAL SUPPORT ENGINEER VERBALIZED UNDERSTANDING OF THIS.
[2019-08-15 20:46] VITALS: BP 165/76
--- NOTE | 2019-08-16 00:05 | NUR ---
SITTING UP IN CHAIR WITH EYES CLOSED. RESP EVEN AND NONLABORED. O2 IN USE. IN ROOM. NO DISTRES. CL IN REACH.
--- NOTE | 2019-08-16 04:30 | NUR ---
PT HAS BEEN CLIPPED. HIBACLENS BATH GIVEN. PT SITTING UP IN CHAIR WITH LEGS ELEVATED. AT BEDSIDE. PT STILL REFUSING TO SIGN PROCEDURE CONSENTS. VERY ANXIOUS. STATES HE HAS ALOT OF QUESTIONS THAT HE WANTS TO ASK DR. GOMEZ BEFORE HE WILL SIGN THEM. CHARGE NURSE INFORMED OF THIS.
[2019-08-16 05:36] VITALS: BP 141/78; BP 151/73
[2019-08-16 05:43] VITALS: BP 172/82
[2019-08-16 06:19] LABS: BASOPHILS 0.2 % (0-2); EOSINOPHILS 2.1 % (0-7); HEMATOCRIT 36.1 % (42.0-54.0); HEMOGLOBIN 11.1 g/dL (13.5-17.5); IMMATURE GRANULOCYTES 0.2 % (0-5); LYMPHOCYTES 18.7 % (15-50); MCHC 30.7 g/dL (31.0-37.0); MCV 91.2 fL (80.0-100.0); MEAN PLATELET VOLUME 10.8 fL (7.4-10.4); MONOCYTES 13.1 % (2-11); NEUTROPHILS 65.7 % (40-80); PLATELET COUNT 376 10x3/uL (130-400); RBC 3.96 10x6/uL (4.20-6.10); RDW 14.7 % (11.5-14.5); WBC 8.4 10x3/uL (4.8-10.8)
[2019-08-16 06:40] LABS: CALC OSMOLALITY 281 mosm/kg (275-300); CALCIUM 8.7 mg/dL (8.5-10.1); CARBON DIOXIDE 30.5 mmol/L (21.0-32.0); CHLORIDE - SERUM 102 mmol/L (98-107); CREATININE - SERUM 0.9 mg/dL (0.6-1.3); GLUCOSE 160 mg/dL (74-106); POTASSIUM - SERUM 3.8 mmol/L (3.5-5.1); SODIUM 139 mmol/L (136-145); UREA NITROGEN 15 mg/dL (7-18); eGFR NON AFRICAN AMERICAN > 90 mL/min (90-120)
[2019-08-16 08:46] VITALS: BP 155/77
[2019-08-16 12:10] VITALS: BP 137/84
--- NOTE | 2019-08-16 12:11 | NUR ---
OT NOTE: ATTEMPTED THERAPY THIS AM, HOWEVER, PT REPORTS THAT HIS LEGS ARE TOO SWOLLEN AND PAINFUL TO AMBULATE, BUT STATES THAT HE HAS BEEN ABLE TO GET TO BATHROOM NEEDED. STATES THAT HE IS AWAITING SURGERY BUT IS UNSURE WHEN THEY WILL BE IN TO GET HIM. STATES THAT HE WILL BE GOING TO ICU FOLLOWING SURGERY. KARLA ROCHA, OTR/L
[2019-08-16 16:35] VITALS: BP 114/78
--- NOTE | 2019-08-16 19:25 | NUR ---
UP IN CHAIR WITH O2 ON, FAMILY AT SIDE. CHEST TUBE TO RIGHT IS PATENT TO WATER SEAL WITH SEROUS DRAINAGE IN TUBING. SHOWS NO S/S OF ANY ACUTE DISTRESS. ABLE TO VOICE ALL NEEDS. DENIES ANY PAIN AT THIS TIME.
[2019-08-16 20:00] VITALS: BP 146/72
[2019-08-17] VITALS: BP 185/85
[2019-08-17 04:00] VITALS: BP 141/48
--- NOTE | 2019-08-17 04:41 | NUR ---
I have reviewed this patient and I concur with the Shift Assessment completed by the Licensed Practical Nurse today this shift.
[2019-08-17 06:38] LABS: BASOPHILS 0.3 % (0-2); HEMATOCRIT 34.4 % (42.0-54.0); HEMOGLOBIN 10.5 g/dL (13.5-17.5); IMMATURE GRANULOCYTES 0.3 % (0-5); LYMPHOCYTES 21.8 % (15-50); MCHC 30.5 g/dL (31.0-37.0); MCV 91.7 fL (80.0-100.0); MEAN PLATELET VOLUME 10.6 fL (7.4-10.4); MONOCYTES 13.7 % (2-11); NEUTROPHILS 61.9 % (40-80); PLATELET COUNT 351 10x3/uL (130-400); RBC 3.75 10x6/uL (4.20-6.10); RDW 14.6 % (11.5-14.5); WBC 7.9 10x3/uL (4.8-10.8)
--- NOTE | 2019-08-17 07:08 | MORECARE ---
CASE MANAGEMENT DISCHARGE SUMMARY PATIENT: TIKI PIERSON UNIT: [id number] ADM DATE: 07/31/19 AGE: 59 : 56 SEX: M ROOM/BED: D.2233 AUTHOR: YASSINE WESTON PHYSICIAN: REFERRING PHYSICIAN: JULIANA BOO MD DATE OF SERVICE: 08/17/19 Discharge Plan Patient Name: TIKI PIERSON Facility: [facility]:[place] : 1960 Planned Disposition: Home with Home Health Anticipated Discharge Date: Discharge Date: Expected LOS: Initial Reviewer: [id number] Initial Review Date: 07/31/2019 Generated: 08/17/19 8:08 am DCP- Discharge Planning Updated by [id number]: Soumya Villaliss on 08/11/19 3:[address] PATIENT'S RESTING ROOM AIR SAT IS 78%. OXYGEN BACK ON AT 2 LITERS AND SAT IS 98%. OXYGEN ORDER FAXED TO [facility]. THEY WILL DELIVER PORTABLE TANK THIS WEEKEND IF NEEDED. CM WILL CONTINUE TO FOLLOW AND ASSIST WITH DISCHARGE PLANNING/NEEDS. DCP- Discharge Planning Updated by [id number]: Soumya Harrison on 08/11/19 8:[address] Met with and patient today per her request. She would like a guest tray, nurse manager management notified. CM discussed rehab prescreening, he states he does not want to go to rehab. States he would like to go home with [facility] in [place]. They have the personal care at this time that comes out daily for house keeping and "anything that I need." VERENA for [facility] in [place] and [facility] for possible home O2 and Nebulizer needs. He states his sleep study was 20 years ago or so, he will need a sleep study set up at discharge. He states he would like to have it done in [place]. CM will continue to follow and assist with discharge planning/needs. DCP- Discharge Planning Updated by [email or web address]: Carmen Velez on 08/01/19 12:[address] Patient Name: TIKI PIERSON Admission Status: ER Accout number: [id number] Admission Date: 07-31-2019 : 1960 Admission Diagnosis: Attending: JULIANA BOO Current LOS: 1 Anticipated DC Date: Planned Disposition: Home with Home Health Primary Insurance: [facility] MEDICARE SOLUTIONS Discharge Planning Comments: CM met with patient and his significant other Cha Solitario to complete initial dc planning assessment. CM educated patient on the CM role and verbal consent given by Cha to complete assessment. CM verified patient's address, phone number, and emergency contact phone numbers. Patient lives at home with Cha who reports patient is independent of his care. Patient currently has [facility] in [place] and wishes to resume at discharge. VERENA form signed by Cha for resumption of [facility]. Signed form placed in chart and signed form given to Cha. At discharge patient plans to return home and feels this is a safe discharge. Cha denied further known discharge needs at this time. Cha reports she will transport him home at time of discharge. Patient appears to be sleeping during assessment and never acknowledged cm in room. Patient will need Physical Therapy once MD feels patient is medically stable to participate. CM will continue to follow and will assist as needed with dc plans/needs. Commissions Specialist: Carmen Velez DCPIA - Discharge Planning Initial Assessment Updated by [email or web address]: Carmen Velez on 08/01/19 1:26 pm * Is the patient Alert and Oriented? No * How many steps to enter\\exit or inside your home? * PCP Monika [facility] in [place] * Pharmacy [facility] * Preadmission Environment Home with Family * ADLs Independent * Equipment Cane * List name and contact numbers for known caregivers / representatives who currently or will assist patient after discharge: CHA SOLITARIO - SIGNIFICANT OTHER- [phone] * Verbal permission to speak to the caregivers and representatives has been obtained from the patient. N/A * Community resources currently utilized Home Health * Please name any agencies selected above. [employer] - [place] [facility] * Additional services required to return to the preadmission environment? No * Can the patient safely return to the preadmission environment? Yes * Has this patient been hospitalized within the prior 30 days at any hospital? No Coverage Notice Reviewer: [email or web address] - Soumya Harrison Notice Issued Date-Time: 08/11/2019 9:35 Notice Type: Patient Choice Letter Notice Delivered To: Patient Relationship to Patient: Self Gate Manager Name: Delivery Method: HAND - Hand Delivered Vaishnavi Days: Prior Verbal Notification: Recipient Understood Notice: Yes Recipient Signature: Yes Med Rec Note Co-signed by Attending: Coverage Notice Comment: VERENA for [facility] and [facility] in [place] Last DP export: 08/11/19 3:51 Patient Name: TIKI PIERSON Page [phone] at 0708 All edits/amendments must be made on the electronic document DICTATION DATE: 08/17/19707 BULLDOZER ENGINEER: GERHARD 08/17/19707 RPT#: [id number] DC DATE: STATUS: ADM IN [facility] [address] [place] [address] END OF REPORT
[2019-08-17 07:21] LABS: ALBUMIN 2.3 g/dL (3.4-5.0); ALKALINE PHOSPHATASE 90 U/L (46-116); ALT (SGPT) 18 U/L (10-68); CALC OSMOLALITY 278 mosm/kg (275-300); CALCIUM 8.7 mg/dL (8.5-10.1); CARBON DIOXIDE 29.2 mmol/L (21.0-32.0); CHLORIDE - SERUM 101 mmol/L (98-107); CREATININE - SERUM 0.9 mg/dL (0.6-1.3); GLUCOSE 142 mg/dL (74-106); POTASSIUM - SERUM 4.2 mmol/L (3.5-5.1); PROTEIN - SERUM 5.9 g/dL (6.4-8.2); SODIUM 138 mmol/L (136-145); UREA NITROGEN 15 mg/dL (7-18); eGFR NON AFRICAN AMERICAN > 90 mL/min (90-120)
[2019-08-17 08:24] VITALS: BP 144/73
--- NOTE | 2019-08-17 10:29 | NUR ---
PATIENT RECIEVED FROM PREVIOUS NURSE THIS AM SITTING UP IN CHAIR WITH NO DISTRESS. 02 2LNC, AT SIDE
[2019-08-17 11:51] VITALS: BP 136/71
--- NOTE | 2019-08-17 14:25 | NUR ---
OT NOTE: PT DOING WELL WITH AMBULATION. CONTINUES TO C/O LE EDEMA AND PAIN IN LES. ABLE TO AMB IN ROOM SAFELY WITH WALKER, BUT STATES THAT HE USUALLY GOES TO BATHROOM WITHOUT IT. INSTRUCTED PT IN SAFETY ISSUES AND ENCOURAGED TO USE WALKER FOR SAFETY REASON. PT STATED UNDERSTANDING. CONT TO REQUIRE EXT ASSIST TO JANNETTE SOCKS AND KEEPS LEGS ELEVATED THROUGHOUT THE DAY. KARLA ROCHA, OTR/L
[2019-08-17 16:29] VITALS: BP 162/78
--- NOTE | 2019-08-17 19:00 | NUR ---
BEDSIDE REPORT RECEIVED AND CARE OF PT ASSUMED. PT SITTING UP IN CHAIR VISITING WITH FAMILY MEMBER. IV TO RIGHT WRIST SALINE LOCKED. O2 IN USE VIA NC AT 2L. WILL MONITOR FOR NEEDS.
--- NOTE | 2019-08-17 20:11 | NUR ---
HS MEDICATIONS GIVEN. FSBS 213 THIS CHECK REQUIRING COVERAGE WITH 8 UNITS OF INSULIN PER SLIDING SCALE.
[2019-08-17 21:27] VITALS: BP 165/87
[2019-08-18 00:42] VITALS: BP 167/75
[2019-08-18 05:26] VITALS: BP 162/79
[2019-08-18 06:27] LABS: BASOPHILS 0.1 % (0-2); EOSINOPHILS 1.1 % (0-7); HEMATOCRIT 36.3 % (42.0-54.0); HEMOGLOBIN 11.1 g/dL (13.5-17.5); IMMATURE GRANULOCYTES 0.3 % (0-5); LYMPHOCYTES 15.1 % (15-50); MCH 27.9 pg (26.0-34.0); MCHC 30.6 g/dL (31.0-37.0); MCV 91.2 fL (80.0-100.0); MEAN PLATELET VOLUME 10.6 fL (7.4-10.4); MONOCYTES 11.1 % (2-11); NEUTROPHILS 72.3 % (40-80); PLATELET COUNT 348 10x3/uL (130-400); RBC 3.98 10x6/uL (4.20-6.10); RDW 14.6 % (11.5-14.5)
[2019-08-18 06:29] LABS: WBC 10.8 10x3/uL (4.8-10.8)
[2019-08-18 06:43] LABS: ALBUMIN 2.4 g/dL (3.4-5.0); ALKALINE PHOSPHATASE 96 U/L (46-116); ALT (SGPT) 18 U/L (10-68); BILIRUBIN - TOTAL 0.36 mg/dL (0.2-1.3); CALC OSMOLALITY 276 mosm/kg (275-300); CALCIUM 8.9 mg/dL (8.5-10.1); CARBON DIOXIDE 30.7 mmol/L (21.0-32.0); CHLORIDE - SERUM 100 mmol/L (98-107); GLUCOSE 170 mg/dL (74-106); POTASSIUM - SERUM 3.7 mmol/L (3.5-5.1); PROTEIN - SERUM 6.8 g/dL (6.4-8.2); SODIUM 136 mmol/L (136-145); UREA NITROGEN 15 mg/dL (7-18); eGFR NON AFRICAN AMERICAN 81 mL/min (90-120)
[2019-08-18 08:34] VITALS: BP 182/92
--- NOTE | 2019-08-18 09:00 | NUR ---
ALERT AND ORIENTED SITTING UP IN CHAIR. CHEST TUBE REINFORCED TO RT. MID AXILLARY WITH DIMINISHED BREATH SOUNDS X4 POSTERIOR. O2 2L N/C. EDEMA 3+ NOTED TO BLE WITH PEDAL PULSES NOTED. ENCOURAGED TO USE CALL LIGHT FOR ASSIST. DENIES ANY PRIN OR DISCOMFORT AT THIS TIME.
[2019-08-18 12:52] VITALS: BP 155/77
[2019-08-18 16:19] VITALS: BP 166/77
--- NOTE | 2019-08-18 19:00 | NUR ---
BEDSIDE REPORT RECEIVED AND CARE OF PT ASSUMED. PT SITTING UP IN CHAIR WATCHING TV. IV TO RIGHT WRIST SALINE LOCKED. O2 IN USE VIA NC AT 2L. WILL MONITOR FOR NEEDS.
--- NOTE | 2019-08-18 20:00 | NUR ---
FSBS 235 THIS CHECK REQUIRING COVERAGE WITH 8 UNITS OF INSULIN PER SLIDING SCALE.
--- NOTE | 2019-08-18 20:32 | NUR ---
HS MEDICATIONS GIVEN. WILL CONTINUE TO MONITOR FOR NEEDS.
[2019-08-18 21:36] VITALS: BP 178/81
--- NOTE | 2019-08-19 00:15 | NUR ---
FSBS 245 THIS CHECK REQUIRING COVERAGE WITH 8 UNITS OF INSULIN PER SLIDING SCALE.
--- NOTE | 2019-08-19 00:16 | NUR ---
NO OUTPUT FROM CHEST TUBE IN LAST 6 HOURS.
[2019-08-19 01:05] VITALS: BP 137/78
[2019-08-19 05:16] VITALS: BP 123/68
--- NOTE | 2019-08-19 06:21 | NUR ---
OUTPUT FOR CHEST TUBE FOR PAST 6 HOURS IS 10 ML....TOTAL FOR SHIFT IS 10ML. DRESSING AROUND TUBE SOAKED WITH SEROUS FLUID. REMOVED DRESSING AND REPLACED WITH 4X4'S AND COVERED WITH CLEAR TEGADERM DRESSING. PT TOLERATED WELL.
[2019-08-19 06:23] LABS: ALBUMIN 2.2 g/dL (3.4-5.0); ALKALINE PHOSPHATASE 83 U/L (46-116); ALT (SGPT) 14 U/L (10-68); BILIRUBIN - TOTAL 0.48 mg/dL (0.2-1.3); CALC OSMOLALITY 280 mosm/kg (275-300); CALCIUM 8.5 mg/dL (8.5-10.1); CARBON DIOXIDE 27.3 mmol/L (21.0-32.0); CHLORIDE - SERUM 100 mmol/L (98-107); GLUCOSE 180 mg/dL (74-106); POTASSIUM - SERUM 3.3 mmol/L (3.5-5.1); PROTEIN - SERUM 6.6 g/dL (6.4-8.2); SODIUM 137 mmol/L (136-145); UREA NITROGEN 18 mg/dL (7-18); eGFR NON AFRICAN AMERICAN 81 mL/min (90-120)
[2019-08-19 06:59] LABS: BASOPHILS 0.2 % (0-2); EOSINOPHILS 0.5 % (0-7); HEMATOCRIT 33.2 % (42.0-54.0); HEMOGLOBIN 10.2 g/dL (13.5-17.5); IMMATURE GRANULOCYTES 0.5 % (0-5); MCH 27.9 pg (26.0-34.0); MCHC 30.7 g/dL (31.0-37.0); MEAN PLATELET VOLUME 10.7 fL (7.4-10.4); MONOCYTES 15.3 % (2-11); NEUTROPHILS 69.5 % (40-80); PLATELET COUNT 334 10x3/uL (130-400); RBC 3.65 10x6/uL (4.20-6.10); RDW 14.8 % (11.5-14.5)
[2019-08-19 07:56] VITALS: BP 137/80
--- NOTE | 2019-08-19 09:46 | NUR ---
PT ALERT X 4. BREATH SOUNDS DIMINISHED TO LOWER LOBES, 2L O2 PER NC. IV TO RIGHT WRIST, SALINE LOCKED. PT REPORTING PAIN OF 5/10 TO BUTTOCK, CHAIR EGG CRATE ORDERED. SKIN REDDENED AND IRRITATED TO GROIN, INSTRUCTED PT TO USE BOUDREAX'S NEEDED. +3 PITTING EDEMA TO BLE, EDUCATED PT TO ELEVATE LEGS MUCH POSSIBLE AND AMBULATE TOLERATED. PT SITTING UP IN CHAIR. FAMILY IN ROOM. BED LOW, CALL LIGHT IN REACH. NO OTHER NEEDS AT THIS TIME.
--- NOTE | 2019-08-19 14:27 | NUR ---
OT NOTE: AMB WITH PT TO IMPROVE FUNCITONAL ENDURANCE. PT ABLE TO AMB 250 FT WITH RW AND CGA. OCCASSIONAL LOB BUT ABLE TO RECOVER. ATTEMPTED IN ROOM AMBULATION WITHOUT AD, HOWEVER, BALANCE POOR WITH THESE ATTEMPS. EDUCATED ON SAFETY AND ENCOURAGED PT TO ASK FOR ASSIST TO BATHROOM OR USE WALKER, HE IS UNSAFE TO PERFORM INDEP. KARLA ROCHA, OTR/L
--- NOTE | 2019-08-19 19:00 | NUR ---
BEDSIDE REPORT RECEIVED AND CARE OF PT ASSUMED. PT SITTING UP IN CHAIR AT THIS TIME. IV TO RIGHT WRIST SALINE LOCKED. O2 IN USE VIA NC AT 2L. CHEST TUBE ON RIGHT SIDE PATENT...NO OUTPUT ON DAY SHIFT....DRESSING INTACT. WILL MONITOR FOR NEEDS.
[2019-08-19 19:30] VITALS: BP 163/72
--- NOTE | 2019-08-19 20:05 | NUR ---
HS MEDICATIONS GIVEN. FSBS 324 THIS CHECK REQUIRING COVERAGE WITH 12 UNITS OF INSULIN PER SLIDING SCALE.
--- NOTE | 2019-08-19 20:28 | NUR ---
GAVE 650 MG PO TYLENOL FOR ELEVATED TEMP OF 101.4 DEGREES. WILL MONITOR FOR EFFECTIVENESS.
[2019-08-20 00:30] VITALS: BP 142/73
[2019-08-20 04:30] VITALS: BP 154/65
[2019-08-20 05:53] LABS: ALBUMIN 2.1 g/dL (3.4-5.0); ALKALINE PHOSPHATASE 82 U/L (46-116); ALT (SGPT) 14 U/L (10-68); BILIRUBIN - TOTAL 0.44 mg/dL (0.2-1.3); CALC OSMOLALITY 277 mosm/kg (275-300); CALCIUM 8.3 mg/dL (8.5-10.1); CARBON DIOXIDE 28.1 mmol/L (21.0-32.0); CHLORIDE - SERUM 100 mmol/L (98-107); GLUCOSE 205 mg/dL (74-106); POTASSIUM - SERUM 3.6 mmol/L (3.5-5.1); PROTEIN - SERUM 6.7 g/dL (6.4-8.2); SODIUM 135 mmol/L (136-145); UREA NITROGEN 18 mg/dL (7-18); eGFR NON AFRICAN AMERICAN 81 mL/min (90-120)
[2019-08-20 05:56] LABS: BASOPHILS 0.2 % (0-2); EOSINOPHILS 0.6 % (0-7); HEMATOCRIT 32.1 % (42.0-54.0); HEMOGLOBIN 9.8 g/dL (13.5-17.5); IMMATURE GRANULOCYTES 0.2 % (0-5); MCH 27.8 pg (26.0-34.0); MCHC 30.5 g/dL (31.0-37.0); MCV 91.2 fL (80.0-100.0); MONOCYTES 12.5 % (2-11); NEUTROPHILS 75.5 % (40-80); PLATELET COUNT 313 10x3/uL (130-400); RBC 3.52 10x6/uL (4.20-6.10); RDW 14.9 % (11.5-14.5); WBC 12.2 10x3/uL (4.8-10.8)
[2019-08-20 08:10] VITALS: BP 171/85
--- NOTE | 2019-08-20 08:41 | NUR ---
PT ALERT X 4. BREATH SOUNDS DIMINSHED TO LOWER LOBES, 2L O2 PER NC. CHEST TUBE TO RIGHT UPPER SIDE, NO OUTPUT AT THIS TIME, DRESSING HAS SMALL BIT OF DRAINAGE NOTED. IV TO RIGHT WRIST, SALINE LOCKED. +3 EDEMA TO BLE, LEGS WARM TO TOUCH. PT SITTING UP IN CHAIR, ENCOURAGED TO MOVE TO BED. BED LOW, CALL LIGHT IN REACH. NO OTHER NEEDS AT THIS TIME.
[2019-08-20 12:11] VITALS: BP 162/80
--- NOTE | 2019-08-20 19:00 | NUR ---
BEDSIDE REPORT RECEIVED AND CARE OF PT ASSUMED. PT LYING IN MID [place]'S POSITION. IV TO RIGHT WRIST SALINE LOCKED. RIGHT CHEST TUBE PATENT, DRAINING TO GRAVITY. CELESTIN CATHETER DRAINING TO GRAVITY WITH YELLOW URINE IN COLLECTION BAG. O2 IN USE VIA NC AT 2L. WILL MONITOR FOR NEEDS.
[2019-08-20 19:30] VITALS: BP 168/87
--- NOTE | 2019-08-20 21:01 | NUR ---
HS MEDICATIONS GIVEN. FSBS 278 THIS CHECK REQUIRING COVERAGE WITH 10 UNITS OF INSULIN PER SLIDING SCALE. GAVE TYLENOL 650 MG PO FOR ELEVATED TEMP OF 100.7 DEGREES. WILL MONITOR FOR EFFECTIVENESS.
--- NOTE | 2019-08-20 21:40 | NUR ---
TURNED PT TO LEFT SIDE PROPPED WITH PILLOW.
--- NOTE | 2019-08-20 23:07 | NUR ---
PT C/O HURTING AT CHEST TUBE INSERTION SITE. TAPED TUBE TO EASE PULLING. GAVE VALIUM 5 MG PO TO RELAX PT. STARTED SCHEDULED IV ABX. WILL MONITOR FOR NEEDS.
[2019-08-21 00:30] VITALS: BP 152/72
[2019-08-21 04:00] VITALS: BP 171/75
[2019-08-21 06:29] LABS: BASOPHILS 0.2 % (0-2); EOSINOPHILS 0.8 % (0-7); HEMATOCRIT 31.6 % (42.0-54.0); HEMOGLOBIN 9.6 g/dL (13.5-17.5); IMMATURE GRANULOCYTES 0.2 % (0-5); LYMPHOCYTES 10.5 % (15-50); MCH 27.5 pg (26.0-34.0); MCHC 30.4 g/dL (31.0-37.0); MCV 90.5 fL (80.0-100.0); MEAN PLATELET VOLUME 10.7 fL (7.4-10.4); MONOCYTES 13.6 % (2-11); NEUTROPHILS 74.7 % (40-80); PLATELET COUNT 293 10x3/uL (130-400); RBC 3.49 10x6/uL (4.20-6.10); RDW 14.8 % (11.5-14.5); WBC 11.3 10x3/uL (4.8-10.8)
[2019-08-21 06:38] LABS: ALBUMIN 1.7 g/dL (3.4-5.0); ALKALINE PHOSPHATASE 76 U/L (46-116); ALT (SGPT) 13 U/L (10-68); BILIRUBIN - TOTAL 0.33 mg/dL (0.2-1.3); CALC OSMOLALITY 279 mosm/kg (275-300); CALCIUM 8.5 mg/dL (8.5-10.1); CARBON DIOXIDE 30.7 mmol/L (21.0-32.0); CHLORIDE - SERUM 99 mmol/L (98-107); CREATININE - SERUM 0.9 mg/dL (0.6-1.3); GLUCOSE 192 mg/dL (74-106); POTASSIUM - SERUM 3.5 mmol/L (3.5-5.1); PROTEIN - SERUM 6.3 g/dL (6.4-8.2); SODIUM 137 mmol/L (136-145); UREA NITROGEN 15 mg/dL (7-18); eGFR NON AFRICAN AMERICAN > 90 mL/min (90-120)
[2019-08-21 08:29] VITALS: BP 142/77
--- NOTE | 2019-08-21 10:57 | NUR ---
PT RESTING IN BED. NO SIGNS OF DISTRESS. IV TO RIGHT WRIST PATENT NO REDNESS OR TENDERNESS. ON 5L NC. HAS CELESTIN NO KINKS PATENT AND HAS CHEST TUBE PATENT. DENIES ANY FURTHER NEED AT THIS TIME. CALL LIGHT IN REACH. BED LOW POSTIION.
[2019-08-21 13:00] VITALS: BP 146/77
[2019-08-21 15:45] VITALS: BP 140/88
--- NOTE | 2019-08-21 16:51 | NUR ---
OT NOTE: PT IS MOD I WITH BED MBO TASKS. PT REQUIRED SBA FOR EOB SITTING BALANCE. PT COMPLETED BUE AROM AXS. THANK YOU, AGATA CRAIG
--- NOTE | 2019-08-21 18:45 | NUR ---
I have reviewed this patient and I concur with the Shift Assessment completed by the Licensed Practical Nurse today this shift.
--- NOTE | 2019-08-21 19:40 | NUR ---
PT LYING IN BED WITHOUT DISTRESS, AOX4. O2 5L/NC. AT BEDSIDE. IV RIGHT WRIST SL. CELESTIN IN PLACE DRAINING YELLOW URINE. BLE SWOLLEN, RED WITH SCRATCHES. PROPPED ON PILLOWS. DENIES NEEDS. CL IN REACH, WILL CTM
--- NOTE | 2019-08-21 23:30 | NUR ---
PT REQUESTED AND GIVEN VALIUM. DENIES OTHER NEEDS, WILL CTM
[2019-08-22 00:30] VITALS: BP 158/76; BP 160/80
[2019-08-22 04:30] VITALS: BP 131/80
[2019-08-22 05:06] LABS: BASOPHILS 0.1 % (0-2); EOSINOPHILS 0.2 % (0-7); HEMOGLOBIN 9.3 g/dL (13.5-17.5); IMMATURE GRANULOCYTES 0.2 % (0-5); LYMPHOCYTES 10.5 % (15-50); MCH 27.4 pg (26.0-34.0); MCV 91.2 fL (80.0-100.0); MEAN PLATELET VOLUME 10.6 fL (7.4-10.4); MONOCYTES 13.1 % (2-11); NEUTROPHILS 75.9 % (40-80); PLATELET COUNT 252 10x3/uL (130-400); RDW 14.6 % (11.5-14.5); WBC 12.2 10x3/uL (4.8-10.8)
[2019-08-22 05:13] LABS: INR 1.14 (0.85-1.17)
[2019-08-22 05:24] LABS: CALC OSMOLALITY 277 mosm/kg (275-300); CALCIUM 8.3 mg/dL (8.5-10.1); CARBON DIOXIDE 31.9 mmol/L (21.0-32.0); CHLORIDE - SERUM 101 mmol/L (98-107); GLUCOSE 152 mg/dL (74-106); POTASSIUM - SERUM 3.3 mmol/L (3.5-5.1); SODIUM 137 mmol/L (136-145); UREA NITROGEN 14 mg/dL (7-18); eGFR NON AFRICAN AMERICAN 81 mL/min (90-120)
[2019-08-22 07:55] VITALS: BP 168/81
[2019-08-22 13:03] VITALS: BP 155/83
[2019-08-22 16:29] VITALS: BP 140/68
--- NOTE | 2019-08-22 16:29 | NUR ---
OT NOTE: PT COMPLETED ADL MOB WITH SBA. PT COMPLETED EOB SITTING AND SUPINE TO SIT WITH SBA. PT COMPLETED BUE AROM AXS. THANK YOU, AGATA CRAIG
--- NOTE | 2019-08-22 18:44 | NUR ---
I have reviewed this patient and I concur with the Shift Assessment completed by the Licensed Practical Nurse today this shift.
[2019-08-22 19:30] VITALS: BP 160/74
--- NOTE | 2019-08-22 19:45 | NUR ---
PT ASSISTED TO BATHROOM WITH WALKER TO HAVE BM AND BACK TO BED. IV RIGHT WRIST SL. O2 5L/HFNC. CELESTIN IN PLACE DRAINING CLEAR YELLOW URINE. DENIES NEEDS AT THIS TIME. CL IN REACH, WILL CTM
--- NOTE | 2019-08-22 21:00 | NUR ---
FSBS 235, COVERAGE PER SS. DENIES OTHER NEEDS. WILL CTM
--- NOTE | 2019-08-22 23:00 | NUR ---
PT REQUESTING VALIUM TO HELP HIM SLEEP. SPOKE WITH ERIC HANEY APN, VALIUM 5MG QHSPRN ORDERED. GAVE ORDERED. DENIES NEEDS. CL IN REACH, WILL CTM
[2019-08-23 00:30] VITALS: BP 181/81
[2019-08-23 05:09] VITALS: BP 157/77
[2019-08-23 05:25] LABS: BASOPHILS 0.2 % (0-2); EOSINOPHILS 0.7 % (0-7); HEMATOCRIT 32.9 % (42.0-54.0); HEMOGLOBIN 9.9 g/dL (13.5-17.5); IMMATURE GRANULOCYTES 0.7 % (0-5); LYMPHOCYTES 12.2 % (15-50); MCH 27.7 pg (26.0-34.0); MCHC 30.1 g/dL (31.0-37.0); MCV 91.9 fL (80.0-100.0); MEAN PLATELET VOLUME 10.9 fL (7.4-10.4); MONOCYTES 14.5 % (2-11); NEUTROPHILS 71.7 % (40-80); PLATELET COUNT 218 10x3/uL (130-400); RBC 3.58 10x6/uL (4.20-6.10); RDW 14.9 % (11.5-14.5); WBC 10.7 10x3/uL (4.8-10.8)
[2019-08-23 05:47] LABS: CALC OSMOLALITY 279 mosm/kg (275-300); CALCIUM 8.5 mg/dL (8.5-10.1); CARBON DIOXIDE 28.4 mmol/L (21.0-32.0); CHLORIDE - SERUM 99 mmol/L (98-107); CREATININE - SERUM 0.9 mg/dL (0.6-1.3); GLUCOSE 190 mg/dL (74-106); MAGNESIUM - SERUM 1.4 mg/dL (1.8-2.4); POTASSIUM - SERUM 3.7 mmol/L (3.5-5.1); SODIUM 137 mmol/L (136-145); UREA NITROGEN 15 mg/dL (7-18); eGFR NON AFRICAN AMERICAN > 90 mL/min (90-120)
--- NOTE | 2019-08-23 07:26 | MORECARE ---
CASE MANAGEMENT DISCHARGE SUMMARY PATIENT: TIKI PIERSON UNIT: [id number] ADM DATE: 07/31/19 AGE: 59 : 56 SEX: M ROOM/BED: D.2233 AUTHOR: YASSINE WESTON PHYSICIAN: REFERRING PHYSICIAN: JULIANA BOO MD DATE OF SERVICE: 08/23/19 Discharge Plan Patient Name: TIKI PIERSON Facility: [facility]:[place] : 1960 Planned Disposition: Home with Home Health Anticipated Discharge Date: Discharge Date: Expected LOS: Initial Reviewer: [email or web address] Initial Review Date: 07/31/2019 Generated: 08/23/19 8:25 am DCP- Discharge Planning Updated by [email or web address]: Soumya Christy on 08/11/19 4:[address] PATIENT'S RESTING ROOM AIR SAT IS 78%. OXYGEN BACK ON AT 2 LITERS AND SAT IS 98%. OXYGEN ORDER FAXED TO [facility]. THEY WILL DELIVER PORTABLE TANK THIS WEEKEND IF NEEDED. CM WILL CONTINUE TO FOLLOW AND ASSIST WITH DISCHARGE PLANNING/NEEDS. DCP- Discharge Planning Updated by [id number]: Soumya Harrison on 08/11/19 9:[address] Met with and patient today per her request. She would like a guest tray, nurse lead assistant manager notified. CM discussed rehab prescreening, he states he does not want to go to rehab. States he would like to go home with [facility] in [place]. They have the personal care at this time that comes out daily for house keeping and "anything that I need." VERENA for [facility] in [place] and [facility] for possible home O2 and Nebulizer needs. He states his sleep study was 20 years ago or so, he will need a sleep study set up at discharge. He states he would like to have it done in [place]. CM will continue to follow and assist with discharge planning/needs. DCP- Discharge Planning Updated by [email or web address]: Carmen Velez on 08/01/19 1:[address] Patient Name: TIKI PIERSON Admission Status: ER Accout number: [id number] Admission Date: 07-31-2019 : 1960 Admission Diagnosis: Attending: JULIANA BOO Current LOS: 1 Anticipated DC Date: Planned Disposition: Home with Home Health Primary Insurance: [facility] MEDICARE SOLUTIONS Discharge Planning Comments: CM met with patient and his significant other Cha Solitario to complete initial dc planning assessment. CM educated patient on the CM role and verbal consent given by Cha to complete assessment. CM verified patient's address, phone number, and emergency contact phone numbers. Patient lives at home with Cha who reports patient is independent of his care. Patient currently has [facility] in [place] and wishes to resume at discharge. VERENA form signed by Cha for resumption of [facility]. Signed form placed in chart and signed form given to Cha. At discharge patient plans to return home and feels this is a safe discharge. Cha denied further known discharge needs at this time. Cha reports she will transport him home at time of discharge. Patient appears to be sleeping during assessment and never acknowledged cm in room. Patient will need Physical Therapy once MD feels patient is medically stable to participate. CM will continue to follow and will assist as needed with dc plans/needs. Form Building Supervisor: Carmen Velez DCPIA - Discharge Planning Initial Assessment Updated by [email or web address]: Carmen Velez on 08/01/19 1:26 pm * Is the patient Alert and Oriented? No * How many steps to enter\\exit or inside your home? * PCP Monika - Dr Sweeney [facility] in [place] * Pharmacy [facility] * Preadmission Environment Home with Family * ADLs Independent * Equipment Cane * List name and contact numbers for known caregivers / representatives who currently or will assist patient after discharge: CHA SOLITARIO - SIGNIFICANT OTHER- [phone] * Verbal permission to speak to the caregivers and representatives has been obtained from the patient. N/A * Community resources currently utilized Home Health * Please name any agencies selected above. [facility] * Additional services required to return to the preadmission environment? No * Can the patient safely return to the preadmission environment? Yes * Has this patient been hospitalized within the prior 30 days at any hospital? No External Providers [facility] [place] Next Contact Date: Service Request Date: Service Type: Resolution: Reviewer: Comments: Coverage Notice Reviewer: [id number] - Soumya Orrell Notice Issued Date-Time: 08/11/2019 9:35 Notice Type: Patient Choice Letter Notice Delivered To: Patient Relationship to Patient: Self Neighborhood Aide Name: Delivery Method: HAND - Hand Delivered Vaishnavi Days: Prior Verbal Notification: Recipient Understood Notice: Yes Recipient Signature: Yes Med Rec Note Co-signed by Attending: Coverage Notice Comment: VERENA for [facility] and [facility] in [place] Last DP export: 08/17/19 7:08 Patient Name: TIKI PIERSON Page [id number] at 0726 All edits/amendments must be made on the electronic document DICTATION DATE: 08/23/19724 EARTH SCIENCE TECHNICIAN: GERHARD 08/23/19724 RPT#: [id number] DC DATE: STATUS: ADM IN [facility] [address] [place] [address] END OF REPORT
--- NOTE | 2019-08-23 07:33 | MORECARE ---
CASE MANAGEMENT DISCHARGE SUMMARY PATIENT: TIKI PIERSON UNIT: [id number] ADM DATE: 07/31/19 AGE: 59 : 56 SEX: M ROOM/BED: D.2233 AUTHOR: TRISTADOC PHYSICIAN: REFERRING PHYSICIAN: JULIANA BOO MD DATE OF SERVICE: 08/23/19 Discharge Plan Patient Name: TIKI PIERSON Facility: [facility]:[place] : 1960 Planned Disposition: Home with Home Health Anticipated Discharge Date: Discharge Date: Expected LOS: Initial Reviewer: [email or web address] Initial Review Date: 07/31/2019 Generated: 08/23/19 8:32 am Comments DCP- Discharge Planning Updated by [email or web address]: Soumya Harrison on 08/23/19 6:[address] Anticipate discharge today. I have faxed the walk test and order for oxygen with portability at 4 liters, nebulizer and walker. I spoke with [place] with [facility] and she will deliver walker and portable oxygen to the hospital. I faxed clinical to [facility] in [place] and will call the referral when they open this morning. CM will continue to follow and assist with discharge planning/needs. DCP- Discharge Planning Updated by [email or web address]: Soumya Harrison on 08/11/19 4:[address] PATIENT'S RESTING ROOM AIR SAT IS 78%. OXYGEN BACK ON AT 2 LITERS AND SAT IS 98%. OXYGEN ORDER FAXED TO [facility]. THEY WILL DELIVER PORTABLE TANK THIS WEEKEND IF NEEDED. CM WILL CONTINUE TO FOLLOW AND ASSIST WITH DISCHARGE PLANNING/NEEDS. DCP- Discharge Planning Updated by [email or web address]: Soumya Harrison on 08/11/19 9:[address] Met with and patient today per her request. She would like a guest tray, nurse corporate giving manager notified. CM discussed rehab prescreening, he states he does not want to go to rehab. States he would like to go home with [facility] in [place]. They have the personal care at this time that comes out daily for house keeping and "anything that I need." VERENA for [facility] in [place] and [facility] for possible home O2 and Nebulizer needs. He states his sleep study was 20 years ago or so, he will need a sleep study set up at discharge. He states he would like to have it done in [place]. CM will continue to follow and assist with discharge planning/needs. DCP- Discharge Planning Updated by [id number]: Carmen Velez on 08/01/19 1:[address] Patient Name: TIKI PIERSON Admission Status: ER Accout number: [id number] Admission Date: 07-31-2019 : 1960 Admission Diagnosis: Attending: JULIANA BOO Current LOS: 1 Anticipated DC Date: Planned Disposition: Home with Home Health Primary Insurance: [facility] MEDICARE SOLUTIONS Discharge Planning Comments: CM met with patient and his significant other Cha Solitario to complete initial dc planning assessment. CM educated patient on the CM role and verbal consent given by Cha to complete assessment. CM verified patient's address, phone number, and emergency contact phone numbers. Patient lives at home with Cha who reports patient is independent of his care. Patient currently has [facility] in [place] and wishes to resume at discharge. VERENA form signed by Cha for resumption of [facility]. Signed form placed in chart and signed form given to Cha. At discharge patient plans to return home and feels this is a safe discharge. Cha denied further known discharge needs at this time. Cha reports she will transport him home at time of discharge. Patient appears to be sleeping during assessment and never acknowledged cm in room. Patient will need Physical Therapy once MD feels patient is medically stable to participate. CM will continue to follow and will assist as needed with dc plans/needs. Rod Placer: Carmen Velez DCPIA - Discharge Planning Initial Assessment Updated by [id number]: Carmen Velez on 08/01/19 1:26 pm * Is the patient Alert and Oriented? No * How many steps to enter\\exit or inside your home? * PCP Monika - [facility] in [place] * Pharmacy [facility] * Preadmission Environment Home with Family * ADLs Independent * Equipment Cane * List name and contact numbers for known caregivers / representatives who currently or will assist patient after discharge: CHA SOLITARIO - SIGNIFICANT OTHER- [phone] * Verbal permission to speak to the caregivers and representatives has been obtained from the patient. N/A * Community resources currently utilized Home Health * Please name any agencies selected above. [facility] * Additional services required to return to the preadmission environment? No * Can the patient safely return to the preadmission environment? Yes * Has this patient been hospitalized within the prior 30 days at any hospital? No Coverage Notice Reviewer: [email or web address] Lynne Harrison Notice Issued Date-Time: 08/11/2019 9:35 Notice Type: Patient Choice Letter Notice Delivered To: Patient Relationship to Patient: Self Field Machinist Name: Delivery Method: HAND - Hand Delivered Vaishnavi Days: Prior Verbal Notification: Recipient Understood Notice: Yes Recipient Signature: Yes Med Rec Note Co-signed by Attending: Coverage Notice Comment: VERENA for [facility] and [facility] in [place] Last DP export: 08/23/19 6:26 a Patient Name: TIKI PIERSON Page [phone] at 0733 All edits/amendments must be made on the electronic document DICTATION DATE: 08/23/19731 PLANE TENDER: GERHARD 08/23/19731 RPT#: [id number] DC DATE: STATUS: ADM IN [facility] [address] [place] [address] END OF REPORT
--- NOTE | 2019-08-23 07:35 | NUR ---
PT RESTING IN BED. NO SIGNS OF DISTRESS. IV TO RIGHT WRIST PATENT NO REDNESS OR TENDERNESS. HAS CELESTIN NO KINKS PATENT. ON 4L NC. DENIES ANY FURTHER NEED AT THIS TIME. CALL LIGHT IN REACH. BED LOW POSITION. FAMILY AT BEDSIDE
--- NOTE | 2019-08-23 07:58 | MORECARE ---
CASE MANAGEMENT DISCHARGE SUMMARY PATIENT: TIKI PIERSON UNIT: [id number] ADM DATE: 07/31/19 AGE: 59 : 56 SEX: M ROOM/BED: D.2233 AUTHOR: YASSINE WESTON PHYSICIAN: REFERRING PHYSICIAN: JULIANA BOO MD DATE OF SERVICE: 08/23/19 Discharge Plan Patient Name: TIKI PIERSON Facility: [facility]:[place] : 1960 Planned Disposition: Home with Home Health Anticipated Discharge Date: Discharge Date: Expected LOS: Initial Reviewer: [email or web address] Initial Review Date: 07/31/2019 Generated: 08/23/19 8:58 am Comments DCP- Discharge Planning Updated by [id number]: Soumya Harrison on 08/23/19 6:[address] Patient in a chronic stable state prior to discharge. DCP- Discharge Planning Updated by [id number]: Soumya Harrison on 08/23/19 6:[address] Anticipate discharge today. I have faxed the walk test and order for oxygen with portability at 4 liters, nebulizer and walker. I spoke with [place]incito with [facility] and she will deliver walker and portable oxygen to the hospital. I faxed clinical to [facility] in [place] and will call the referral when they open this morning. CM will continue to follow and assist with discharge planning/needs. DCP- Discharge Planning Updated by [id number]: Soumya Harrison on 08/11/19 4:[address] PATIENT'S RESTING ROOM AIR SAT IS 78%. OXYGEN BACK ON AT 2 LITERS AND SAT IS 98%. OXYGEN ORDER FAXED TO [facility]. THEY WILL DELIVER PORTABLE TANK THIS WEEKEND IF NEEDED. CM WILL CONTINUE TO FOLLOW AND ASSIST WITH DISCHARGE PLANNING/NEEDS. DCP- Discharge Planning Updated by [id number]: Soumya Harrison on 08/11/19 9:[address] Met with and patient today per her request. She would like a guest tray, nurse staffing program manager notified. CM discussed rehab prescreening, he states he does not want to go to rehab. States he would like to go home with [facility] in [place]. They have the personal care at this time that comes out daily for house keeping and "anything that I need." VERENA for [facility] in [place] and [facility] for possible home O2 and Nebulizer needs. He states his sleep study was 20 years ago or so, he will need a sleep study set up at discharge. He states he would like to have it done in [place]. CM will continue to follow and assist with discharge planning/needs. DCP- Discharge Planning Updated by [id number]: Carmen Velez on 08/01/19 1:[address] Patient Name: TIKI PIERSON Admission Status: ER Accout number: [id number] Admission Date: 07-31-2019 : 1960 Admission Diagnosis: Attending: JULIANA BOO Current LOS: 1 Anticipated DC Date: Planned Disposition: Home with Home Health Primary Insurance: [facility] MEDICARE SOLUTIONS Discharge Planning Comments: CM met with patient and his significant other Cha Solitario to complete initial dc planning assessment. CM educated patient on the CM role and verbal consent given by Cha to complete assessment. CM verified patient's address, phone number, and emergency contact phone numbers. Patient lives at home with Cha who reports patient is independent of his care. Patient currently has [facility] in [place] and wishes to resume at discharge. VERENA form signed by Cha for resumption of [facility]. Signed form placed in chart and signed form given to Cha. At discharge patient plans to return home and feels this is a safe discharge. Cha denied further known discharge needs at this time. Cha reports she will transport him home at time of discharge. Patient appears to be sleeping during assessment and never acknowledged cm in room. Patient will need Physical Therapy once MD feels patient is medically stable to participate. CM will continue to follow and will assist as needed with dc plans/needs. Roller Printer: Carmen Velez DCPIA - Discharge Planning Initial Assessment Updated by [email or web address]: Carmen Velez on 08/01/19 1:26 pm * Is the patient Alert and Oriented? No * How many steps to enter\\exit or inside your home? * PCP Monika - [facility] in [place] * Pharmacy [facility] * Preadmission Environment Home with Family * ADLs Independent * Equipment Cane * List name and contact numbers for known caregivers / representatives who currently or will assist patient after discharge: CHA SOLITARIO - SIGNIFICANT OTHER- [phone] * Verbal permission to speak to the caregivers and representatives has been obtained from the patient. N/A * Community resources currently utilized Home Health * Please name any agencies selected above. [facility] * Additional services required to return to the preadmission environment? No * Can the patient safely return to the preadmission environment? Yes * Has this patient been hospitalized within the prior 30 days at any hospital? No Coverage Notice Reviewer: [id number] Lynne Harrison Notice Issued Date-Time: 08/11/2019 9:35 Notice Type: Patient Choice Letter Notice Delivered To: Patient Relationship to Patient: Self Customer Solutions Architect Name: Delivery Method: HAND - Hand Delivered Vaishnavi Days: Prior Verbal Notification: Recipient Understood Notice: Yes Recipient Signature: Yes Med Rec Note Co-signed by Attending: Coverage Notice Comment: VERENA for [facility] and [facility] in [place] Last DP export: 08/23/19 6:33 a Patient Name: TIKI PIERSON Page [phone] at 0758 All edits/amendments must be made on the electronic document DICTATION DATE: 08/23/19757 EXTRUDING PRESS OPERATOR: GERHARD 08/23/198 RPT#: [id number] DC DATE: STATUS: ADM IN [facility] [address] [place] [address] END OF REPORT
[2019-08-23 08:03] VITALS: BP 149/85
--- NOTE | 2019-08-23 08:12 | MORECARE ---
CASE MANAGEMENT DISCHARGE SUMMARY PATIENT: TIKI PIERSON UNIT: [id number] ADM DATE: 07/31/19 AGE: 59 : 56 SEX: M ROOM/BED: D.2233 AUTHOR: YASSINE WESTON PHYSICIAN: REFERRING PHYSICIAN: JULIANA BOO MD DATE OF SERVICE: 08/23/19 Discharge Plan Patient Name: TIKI PIERSON Facility: [facility]:[place] : 1960 Planned Disposition: Home with Home Health Anticipated Discharge Date: Discharge Date: Expected LOS: Initial Reviewer: [email or web address] Initial Review Date: 07/31/2019 Generated: 08/23/19 9:11 am Comments DCP- Discharge Planning Updated by [id number]: Soumya aHrrison on 08/23/19 7:[address] Spoke with Kristan at [facility] in [place], she will speak with PCP and call back if approved. DCP- Discharge Planning Updated by [id number]: Soumya Harrison on 08/23/19 6:[address] Patient in a chronic stable state prior to discharge. DCP- Discharge Planning Updated by [email or web address]: Soumya Harrison on 08/23/19 6:[address] Anticipate discharge today. I have faxed the walk test and order for oxygen with portability at 4 liters, nebulizer and walker. I spoke with Chapincito with [facility] and she will deliver walker and portable oxygen to the hospital. I faxed clinical to [facility] in [place] and will call the referral when they open this morning. CM will continue to follow and assist with discharge planning/needs. DCP- Discharge Planning Updated by [id number]: Soumya Harrison on 08/11/19 4:[address] PATIENT'S RESTING ROOM AIR SAT IS 78%. OXYGEN BACK ON AT 2 LITERS AND SAT IS 98%. OXYGEN ORDER FAXED TO [facility]. THEY WILL DELIVER PORTABLE TANK THIS WEEKEND IF NEEDED. CM WILL CONTINUE TO FOLLOW AND ASSIST WITH DISCHARGE PLANNING/NEEDS. DCP- Discharge Planning Updated by [id number]: Soumya Harrison on 08/11/19 9:[address] Met with and patient today per her request. She would like a guest tray, nurse safety and health manager notified. CM discussed rehab prescreening, he states he does not want to go to rehab. States he would like to go home with [facility] in [place]. They have the personal care at this time that comes out daily for house keeping and "anything that I need." VERENA for [facility] in [place] and [facility] for possible home O2 and Nebulizer needs. He states his sleep study was 20 years ago or so, he will need a sleep study set up at discharge. He states he would like to have it done in [place]. CM will continue to follow and assist with discharge planning/needs. DCP- Discharge Planning Updated by [id number]: Carmen Velez on 08/01/19 1:[address] Patient Name: TIKI PIERSON Admission Status: ER Accout number: [id number] Admission Date: 07-31-2019 : 1960 Admission Diagnosis: Attending: JULIANA BOO Current LOS: 1 Anticipated DC Date: Planned Disposition: Home with Home Health Primary Insurance: [facility] MEDICARE SOLUTIONS Discharge Planning Comments: CM met with patient and his significant other Cha Solitario to complete initial dc planning assessment. CM educated patient on the CM role and verbal consent given by Cha to complete assessment. CM verified patient's address, phone number, and emergency contact phone numbers. Patient lives at home with Cha who reports patient is independent of his care. Patient currently has [facility] in [place] and wishes to resume at discharge. VERENA form signed by Cha for resumption of [facility]. Signed form placed in chart and signed form given to Cha. At discharge patient plans to return home and feels this is a safe discharge. Cha denied further known discharge needs at this time. Cha reports she will transport him home at time of discharge. Patient appears to be sleeping during assessment and never acknowledged cm in room. Patient will need Physical Therapy once MD feels patient is medically stable to participate. CM will continue to follow and will assist as needed with dc plans/needs. Stain Dipper: Carmen Velez DCPIA - Discharge Planning Initial Assessment Updated by [email or web address]: Carmen Velez on 08/01/19 1:26 pm * Is the patient Alert and Oriented? No * How many steps to enter\\exit or inside your home? * PCP Monika [facility] in [place] * Pharmacy [facility] * Preadmission Environment Home with Family * ADLs Independent * Equipment Cane * List name and contact numbers for known caregivers / representatives who currently or will assist patient after discharge: CHA SOLITARIO - SIGNIFICANT OTHER- [phone] * Verbal permission to speak to the caregivers and representatives has been obtained from the patient. N/A * Community resources currently utilized Home Health * Please name any agencies selected above. [facility] * Additional services required to return to the preadmission environment? No * Can the patient safely return to the preadmission environment? Yes * Has this patient been hospitalized within the prior 30 days at any hospital? No Coverage Notice Reviewer: [id number] Lynne Harrison Notice Issued Date-Time: 08/11/2019 9:35 Notice Type: Patient Choice Letter Notice Delivered To: Patient Relationship to Patient: Self Hot Metal Mixer Operator Helper Name: Delivery Method: HAND - Hand Delivered Vaishnavi Days: Prior Verbal Notification: Recipient Understood Notice: Yes Recipient Signature: Yes Med Rec Note Co-signed by Attending: Coverage Notice Comment: VERENA for [facility] and [facility] in [place] Reviewer: [id number] Lynne Harrison Notice Issued Date-Time: 08/23/2019 8:09 Notice Type: IM Discharge Notice Notice Delivered To: Patient Relationship to Patient: Self Hot Metal Mixer Operator Helper Name: Delivery Method: HAND - Hand Delivered Viashnavi Days: Prior Verbal Notification: Recipient Understood Notice: Yes Recipient Signature: Yes Med Rec Note Co-signed by Attending: Coverage Notice Comment: IMM delivered, signed by per patient request, given, copy placed in MR Last DP export: 08/23/19 6:58 a Patient Name: TIKI PIERSON Page [phone] at 0812 All edits/amendments must be made on the electronic document DICTATION DATE: 08/23/19810 CABLE TELEVISION LINE TECHNICIAN: GERHARD 08/23/19810 RPT#: [id number] DC DATE: STATUS: ADM IN [facility] [address] [place] [address] END OF REPORT
--- NOTE | 2019-08-23 08:24 | NUR ---
OT NOTE: PT COMPLETED FACE/HAND WASHING WITH SET UP. PT IS MOD I/SPV WITH BED MOB TASKS. PT COMPLETED BUE AROM EXS. THANK YOU, AGATA CRAIG
[2019-08-23] MEDS ORDERED: MUCINEX600 MG PO (10:11)
[2019-08-23] MEDS ORDERED: LASIX40 MG PO (10:11)
[2019-08-23] MEDS ORDERED: SULFAMETHOXAZOL1 TA2 PO (10:12)
[2019-08-23] MEDS ORDERED: VIBRAMYCIN 100100 MG PO (10:12)
[2019-08-23] MEDS ORDERED: IPRAT-ALBUT 0.5-3 ML UPD (10:19)
--- NOTE | 2019-08-23 12:09 | MORECARE ---
CASE MANAGEMENT DISCHARGE SUMMARY PATIENT: TIKI PIERSON UNIT: [id number] ADM DATE: 07/31/19 AGE: 59 : 56 SEX: M ROOM/BED: D.2233 AUTHOR: YASSINE WESTON PHYSICIAN: REFERRING PHYSICIAN: JULIANA BOO MD DATE OF SERVICE: 08/23/19 Discharge Plan Patient Name: TIKI PIERSON Facility: [facility]:[place] : 1960 Planned Disposition: Home with Home Health Anticipated Discharge Date: Discharge Date: Expected LOS: Initial Reviewer: [email or web address] Initial Review Date: 07/31/2019 Generated: 08/23/19 1:08 pm Comments DCP- Discharge Planning Updated by [email or web address]: Soumya Harrison on 08/23/19 11:[address] Discharging home with home health. I spoke with Kristan and they will accept him with [facility] in [place]. He cannot get a CPAP until after sleep study. Dr. Gordon and Dr. Bridges aware. Patient is seeing Dr. Sweeney next week and sleep study and PET SCAN will be set up EFRAÍN. His oxygen and walker are in the room. DCP- Discharge Planning Updated by [id number]: Soumya Harrison on 08/23/19 7:[address] Spoke with Kristan at [facility] in [place], she will speak with PCP and call back if approved. DCP- Discharge Planning Updated by [id number]: Soumya Harrison on 08/23/19 6:[address] Patient in a chronic stable state prior to discharge. DCP- Discharge Planning Updated by [id number]: Soumya Harrison on 08/23/19 6:[address] Anticipate discharge today. I have faxed the walk test and order for oxygen with portability at 4 liters, nebulizer and walker. I spoke with Chapincito with [facility] and she will deliver walker and portable oxygen to the hospital. I faxed clinical to [facility] in [place] and will call the referral when they open this morning. CM will continue to follow and assist with discharge planning/needs. DCP- Discharge Planning Updated by [id number]: Soumya Harrison on 08/11/19 4:[address] PATIENT'S RESTING ROOM AIR SAT IS 78%. OXYGEN BACK ON AT 2 LITERS AND SAT IS 98%. OXYGEN ORDER FAXED TO [facility]. THEY WILL DELIVER PORTABLE TANK THIS WEEKEND IF NEEDED. CM WILL CONTINUE TO FOLLOW AND ASSIST WITH DISCHARGE PLANNING/NEEDS. DCP- Discharge Planning Updated by [id number]: Soumya Harrison on 08/11/19 9:[address] Met with and patient today per her request. She would like a guest tray, nurse ethics manager notified. CM discussed rehab prescreening, he states he does not want to go to rehab. States he would like to go home with [facility] in [place]. They have the personal care at this time that comes out daily for house keeping and "anything that I need." VERENA for [facility] in [place] and [facility] for possible home O2 and Nebulizer needs. He states his sleep study was 20 years ago or so, he will need a sleep study set up at discharge. He states he would like to have it done in [place]. CM will continue to follow and assist with discharge planning/needs. DCP- Discharge Planning Updated by [id number]: Carmen Velez on 08/01/19 1:[address] Patient Name: TIKI PIERSON Admission Status: ER Accout number: [id number] Admission Date: 07-31-2019 : 1960 Admission Diagnosis: Attending: JULIANA BOO Current LOS: 1 Anticipated DC Date: Planned Disposition: Home with Home Health Primary Insurance: [facility] MEDICARE SOLUTIONS Discharge Planning Comments: CM met with patient and his significant other Cha Solitario to complete initial dc planning assessment. CM educated patient on the CM role and verbal consent given by Cha to complete assessment. CM verified patient's address, phone number, and emergency contact phone numbers. Patient lives at home with Cha who reports patient is independent of his care. Patient currently has [facility] in [place] and wishes to resume at discharge. VERENA form signed by Cha for resumption of [facility]. Signed form placed in chart and signed form given to Cha. At discharge patient plans to return home and feels this is a safe discharge. Cha denied further known discharge needs at this time. Cha reports she will transport him home at time of discharge. Patient appears to be sleeping during assessment and never acknowledged cm in room. Patient will need Physical Therapy once MD feels patient is medically stable to participate. CM will continue to follow and will assist as needed with dc plans/needs. Oracle Data Warehouse Developer: Carmen Velez DCPIA - Discharge Planning Initial Assessment Updated by [email or web address]: Carmen Velez on 08/01/19 1:26 pm * Is the patient Alert and Oriented? No * How many steps to enter\\exit or inside your home? * PCP Monika [facility] in [place] * Pharmacy [facility] * Preadmission Environment Home with Family * ADLs Independent * Equipment Cane * List name and contact numbers for known caregivers / representatives who currently or will assist patient after discharge: CHA SOLITARIO - SIGNIFICANT OTHER- [phone] * Verbal permission to speak to the caregivers and representatives has been obtained from the patient. N/A * Community resources currently utilized Home Health * Please name any agencies selected above. [facility] * Additional services required to return to the preadmission environment? No * Can the patient safely return to the preadmission environment? Yes * Has this patient been hospitalized within the prior 30 days at any hospital? No Coverage Notice Reviewer: [id number] Lynne Harrison Notice Issued Date-Time: 08/11/2019 9:35 Notice Type: Patient Choice Letter Notice Delivered To: Patient Relationship to Patient: Self Prison Teacher Name: Delivery Method: HAND - Hand Delivered Vaishnavi Days: Prior Verbal Notification: Recipient Understood Notice: Yes Recipient Signature: Yes Med Rec Note Co-signed by Attending: Coverage Notice Comment: [facility] for [facility] and [facility] in [place] Reviewer: [email or web address] Lynne Harrison Notice Issued Date-Time: 08/23/2019 8:09 Notice Type: IM Discharge Notice Notice Delivered To: Patient Relationship to Patient: Self Prison Teacher Name: Delivery Method: HAND - Hand Delivered Vaishnavi Days: Prior Verbal Notification: Recipient Understood Notice: Yes Recipient Signature: Yes Med Rec Note Co-signed by Attending: Coverage Notice Comment: IMM delivered, signed by per patient request, given, copy placed in MR Last DP export: 08/23/19 7:12 a Patient Name: TIKI PIERSON Page [id number] at 1209 All edits/amendments must be made on the electronic document DICTATION DATE: 08/23/191207 NURSING MANAGER: GERHARD 08/23/191207 RPT#: [id number] DC DATE: STATUS: ADM IN [facility] [address] [place] [address] END OF REPORT
--- NOTE | 2019-08-23 12:41 | NUR ---
DISCHARGE INSTRUCTIONS GIVEN. SEEMS TO UNDERSTAND. NO SIGNS OF DISTRESS. IV OUT TIP INTACT. PORTABLE O2 ON. LEFT WITH HOSPITAL STAFF TO GO HOME WITH FAMILY.
--- NOTE | 2019-08-25 08:32 | MORECARE ---
CASE MANAGEMENT DISCHARGE SUMMARY PATIENT: TIKI PIERSON UNIT: [id number] ADM DATE: 07/31/19 AGE: 59 : 56 SEX: M ROOM/BED: D.2233 AUTHOR: TRISTADOC PHYSICIAN: REFERRING PHYSICIAN: JULIANA BOO MD DATE OF SERVICE: 08/25/19 Discharge Plan Patient Name: TIKI PIERSON Facility: [facility]:[place] : 1960 Planned Disposition: Home with Home Health Anticipated Discharge Date: Discharge Date: 08/23/2019 Expected LOS: 0 Initial Reviewer: [email or web address] Initial Review Date: 07/31/2019 Generated: 08/25/19 9:31 am Comments DCP- Discharge Planning Updated by [id number]: Soumya Harrison on 08/23/19 11:[address] Discharging home with home health. I spoke with Kristan and they will accept him with [facility] in [place]. He cannot get a CPAP until after sleep study. Dr. Gordon and Dr. Bridges aware. Patient is seeing Dr. Sweeney next week and sleep study and PET SCAN will be set up EFRAÍN. His oxygen and walker are in the room. DCP- Discharge Planning Updated by [id number]: Soumya Harrison on 08/23/19 7:[address] Spoke with Kristan at [facility] in [place], she will speak with PCP and call back if approved. DCP- Discharge Planning Updated by [id number]: Soumya Harrison on 08/23/19 6:[address] Patient in a chronic stable state prior to discharge. DCP- Discharge Planning Updated by [email or web address]: Soumya Harrison on 08/23/19 6:[address] Anticipate discharge today. I have faxed the walk test and order for oxygen with portability at 4 liters, nebulizer and walker. I spoke with Chapincito with [facility] and she will deliver walker and portable oxygen to the hospital. I faxed clinical to [facility] in [place] and will call the referral when they open this morning. CM will continue to follow and assist with discharge planning/needs. DCP- Discharge Planning Updated by [id number]: Soumya Harrison on 08/11/19 4:[address] PATIENT'S RESTING ROOM AIR SAT IS 78%. OXYGEN BACK ON AT 2 LITERS AND SAT IS 98%. OXYGEN ORDER FAXED TO [facility]. THEY WILL DELIVER PORTABLE TANK THIS WEEKEND IF NEEDED. CM WILL CONTINUE TO FOLLOW AND ASSIST WITH DISCHARGE PLANNING/NEEDS. DCP- Discharge Planning Updated by [id number]: Soumya Harrison on 08/11/19 9:[address] Met with and patient today per her request. She would like a guest tray, nurse brand communications manager notified. CM discussed rehab prescreening, he states he does not want to go to rehab. States he would like to go home with [facility] in [place]. They have the personal care at this time that comes out daily for house keeping and "anything that I need." VERENA for [facility] in [place] and [facility] for possible home O2 and Nebulizer needs. He states his sleep study was 20 years ago or so, he will need a sleep study set up at discharge. He states he would like to have it done in [place]. CM will continue to follow and assist with discharge planning/needs. DCP- Discharge Planning Updated by [id number]: Carmen Velez on 08/01/19 1:[address] Patient Name: TIKI PIERSON Admission Status: ER Accout number: [id number] Admission Date: 07-31-2019 : 1960 Admission Diagnosis: Attending: JULIANA BOO Current LOS: 1 Anticipated DC Date: Planned Disposition: Home with Home Health Primary Insurance: [facility] MEDICARE SOLUTIONS Discharge Planning Comments: CM met with patient and his significant other Cha Solitario to complete initial dc planning assessment. CM educated patient on the CM role and verbal consent given by Cha to complete assessment. CM verified patient's address, phone number, and emergency contact phone numbers. Patient lives at home with Cha who reports patient is independent of his care. Patient currently has [facility] in [place] and wishes to resume at discharge. VERENA form signed by Cha for resumption of [facility]. Signed form placed in chart and signed form given to Cha. At discharge patient plans to return home and feels this is a safe discharge. Cha denied further known discharge needs at this time. Cha reports she will transport him home at time of discharge. Patient appears to be sleeping during assessment and never acknowledged cm in room. Patient will need Physical Therapy once MD feels patient is medically stable to participate. CM will continue to follow and will assist as needed with dc plans/needs. Mechanic: Carmen Velez DCPIA - Discharge Planning Initial Assessment Updated by [email or web address]: Carmen Velez on 08/01/19 1:26 pm * Is the patient Alert and Oriented? No * How many steps to enter\\exit or inside your home? * PCP Monika [facility] in [place] * Pharmacy [facility] * Preadmission Environment Home with Family * ADLs Independent * Equipment Cane * List name and contact numbers for known caregivers / representatives who currently or will assist patient after discharge: CHA SOLITARIO - SIGNIFICANT OTHER- [phone] * Verbal permission to speak to the caregivers and representatives has been obtained from the patient. N/A * Community resources currently utilized Home Health * Please name any agencies selected above. [facility] * Additional services required to return to the preadmission environment? No * Can the patient safely return to the preadmission environment? Yes * Has this patient been hospitalized within the prior 30 days at any hospital? No Coverage Notice Reviewer: [id number] Lynne Harrison Notice Issued Date-Time: 08/11/2019 9:35 Notice Type: Patient Choice Letter Notice Delivered To: Patient Relationship to Patient: Self Mine Patrol Name: Delivery Method: HAND - Hand Delivered Vaishnavi Days: Prior Verbal Notification: Recipient Understood Notice: Yes Recipient Signature: Yes Med Rec Note Co-signed by Attending: Coverage Notice Comment: [facility] for [facility] and [facility] in [place] Reviewer: [id number] Harrison Notice Issued Date-Time: 08/23/2019 8:09 Notice Type: IM Discharge Notice Notice Delivered To: Patient Relationship to Patient: Self Mine Patrol Name: Delivery Method: HAND - Hand Delivered Vaishnavi Days: Prior Verbal Notification: Recipient Understood Notice: Yes Recipient Signature: Yes Med Rec Note Co-signed by Attending: Coverage Notice Comment: IMM delivered, signed by per patient request, given, copy placed in MR Last DP export: 08/23/19 11:09 a Patient Name: TIKI PIERSON Page [phone] at 0832 All edits/amendments must be made on the electronic document DICTATION DATE: 08/25/19830 AUTOMOTIVE POWER ELECTRONICS ENGINEER: GERHARD 08/25/19830 RPT#: [id number] DC DATE:08/23/19 STATUS: DIS IN [facility] [address] [place] [address] END OF REPORT
== END 2019-08-23 12:42 | disposition home health service (06) | DRG 186 ==
LOC: D.ER 19:20 → D.ICU 20:01 → D.M2 20:01 → D.MS 20:01 → D.ICU 08-01 00:42 → D.MS 08-09 15:54
PROVIDERS: Family Medicine; Internal Medicine Nephrology; Internal Medicine Pulmonary Disease; Thoracic Surgery (Cardiothoracic Vascular Surgery); ADMIT Family Medicine; ATTEND Family Medicine
PROC: 0W993ZZ Drainage of Right Pleural Cavity, Percutaneous Approach (ICD-10-PCS; principal; 2019-08-01)
PROC: 0W9900Z Drainage of Right Pleural Cavity with Drainage Device, Open Approach (ICD-10-PCS; 2019-08-07)
DX: J90 Pleural effusion, not elsewhere classified (principal); J96.01 Acute respiratory failure with hypoxia; G93.41 Metabolic encephalopathy; J96.22 Acute and chronic respiratory failure with hypercapnia; J18.1 Lobar pneumonia, unspecified organism; F17.203 Nicotine dependence unspecified, with withdrawal; Z68.41 Body mass index [BMI] 40.0-44.9, adult; E44.0 Moderate protein-calorie malnutrition; I50.22 Chronic systolic (congestive) heart failure; Z99.81 Dependence on supplemental oxygen; K59.00 Constipation, unspecified; E11.9 Type 2 diabetes mellitus without complications; K21.9 Gastro-esophageal reflux disease without esophagitis; E78.5 Hyperlipidemia, unspecified; M19.90 Unspecified osteoarthritis, unspecified site; E66.01 Morbid (severe) obesity due to excess calories; I11.0 Hypertensive heart disease with heart failure; R53.81 Other malaise; N40.0 Benign prostatic hyperplasia without lower urinary tract symptoms

== ENCOUNTER → 2019-08-30 09:42 | Outpatient (CLI) | payer MEDICARE, MEDICAID ==
[2019-08-05 18:53] VITALS: BMI 43.3
[~2019-08-30 09:42] MED LIST: ALBUTEROL SULF8.5 GM IH; BAYER CHEWABLE81 MG PO; CATAPRES0.1 MG PO; FERROUS SULFAT325 MG PO; FLOMAX0.4 MG PO; GLUCOPHAGE500 MG PO; IPRAT-ALBUT 0.5-3 ML UPD; LANTUS SOL100 UNIT/1 SC; LASIX40 MG PO; LINZESS145 MCG PO; LIPITOR40 MG PO; METOPROLOL TART50 MG PO; MUCINEX600 MG PO; PLAVIX75 MG PO; SULFAMETHOXAZOL1 TA2 PO; TRADJENTA5 MG PO; VIBRAMYCIN 100100 MG PO
== END | disposition home or self-care (01) ==
LOC: D.RAD 09:30
PROVIDERS: ATTEND Thoracic Surgery (Cardiothoracic Vascular Surgery)
DX: Z48.89 Encounter for other specified surgical aftercare (principal)

== ENCOUNTER 2020-02-20 11:43 | Day surgery (SDC) | payer MEDICARE, MEDICAID ==
[2019-11-09 15:19] VITALS: BMI 40.0
[~2020-02-20 11:43] MED LIST changes: +HUMULIN R100 UNIT/1 SC; +LEVOFLOXACIN500 MG PO; +LIPITOR20 MG PO; +Lantus Insulin SC; +ULTRAM50 MG PO; +ZOFRAN4 MG PO; +ZYLOPRIM100 MG PO
--- NOTE | 2020-02-20 16:43 | NUR ---
DC INSTRUCTIONS GIVEN TO PT. STATES UNDERSTANDING. WILL CONTINUE TO MONITOR.
--- NOTE | 2020-02-20 16:56 | NUR ---
PT'S GIRLFRIEND WAS CALLED ONCE PT'S BLOOD TRANSFUSION ENDED AT ABOUT 1640. I CALLED TO INFORM HER THAT HE WOULD BE READY TO BE PICED UP AT 1705 AT ER ENTRANCE. PT STATES UNDERSTANDING. SHE THEN CALLED BACK AT ABOUT 1650 AND STATES THAT SHE IS IN [place] AND UNABLE TO PICK HIM UP AND IS TRYING TO FIND SOMEONE WHO CAN PICK HIM UP. WILL CONTINUE TO MONITOR PT.
--- NOTE | 2020-02-20 17:09 | NUR ---
DC'D IV CATH FULLY INTACT.
--- NOTE | 2020-02-20 17:37 | NUR ---
PT TALKED TO GIRLFRIEND. AFTER SPEAKING TO HER, HE TOLD ME THAT HER FRIEND WILL BE ABLE TO DROP HER OFF AT THE HOSPITAL AT ABOUT [phone] TO PICK HIM UP. WILL CONTINUE TO MONITOR PT.
--- NOTE | 2020-02-20 20:12 | NUR ---
PATIENT TRANSFERRED BY WHEELCHAIR TO ROOM 2212 DUE TO AWAITING DC TRANSPORTATION AND PATIENT NEEDS OXYGEN UNTIL RIDE ARRIVES. HAS PORTABLE O2 BUT IT IS EMPTY AND HAS ANOTHER BOTTLE IN CAR IN PARKING LOT BUT IT IS LOCKED AND GIRLFRIEND IN [place] HAS THE ALDRIDGE. GIRLFRIEND SAYS SHE IS COMING.
--- NOTE | 2020-02-20 21:15 | NUR ---
GIRLFRIEND AT ER ENTRANCE TO MOVIE THEATER MANAGER PT. GIRLFRIEND STATES ALDRIDGE TO VAN WAS ON PT O2 TANK. PT TAKEN WITH DISCHARGE PAPERS AND PORTABLE O2 IN HIS WHEELCHAIR TO ER ENTRANCE. GIRLFRIEND ASSISTED PT IN TO VAN.
== END 2020-02-20 21:15 | disposition home or self-care (01) ==
LOC: D.OPS 11:43 → D.MS 20:14 → D.OPS 21:15
PROVIDERS: ATTEND Internal Medicine Hematology & Oncology
DX: D64.9 Anemia, unspecified (principal)

== ENCOUNTER → 2020-02-20 12:15 | Outpatient (CLI) | payer MEDICARE, MEDICAID ==
[~2020-02-20] VITALS: Ht 190.5 cm; Wt 121.4 kg
[2020-02-20 13:28] VITALS: BP 122/68; Ht 190.5 cm; Wt 121.4 kg
== END | disposition home or self-care (01) ==
LOC: D.OPS 12:15
PROVIDERS: ATTEND Internal Medicine Hematology & Oncology
DX: D64.9 Anemia, unspecified (principal)

== ENCOUNTER 2020-04-25 10:34 | Outpatient (CLI) | payer MEDICARE, MEDICAID ==
[~2020-04-25] VITALS: Ht 190.5 cm; Wt 124.5 kg
[2020-04-25 11:17] VITALS: BP 127/66; Ht 190.5 cm; Wt 124.5 kg
--- NOTE | 2020-04-25 15:18 | NUR ---
1500 IV REMOVED AND INSTRUCTIONS GIVEN
== END 2020-04-25 15:18 | disposition home or self-care (01) ==
LOC: D.OPS 10:34
PROVIDERS: ATTEND Internal Medicine Hematology & Oncology
DX: C7A.1 Malignant poorly differentiated neuroendocrine tumors (principal); C83.34 Diffuse large B-cell lymphoma, lymph nodes of axilla and upper limb; N18.3 Chronic kidney disease, stage 3 (moderate); D64.81 Anemia due to antineoplastic chemotherapy

== ENCOUNTER → 2020-05-09 09:45 | Outpatient (CLI) | payer MEDICARE, MEDICAID ==
[2020-04-25 11:17] VITALS: BMI 34.3
== END | disposition home or self-care (01) ==
LOC: D.MRI 09:45
PROVIDERS: ATTEND Internal Medicine Hematology & Oncology
DX: C7A.1 Malignant poorly differentiated neuroendocrine tumors (principal); Z51.11 Encounter for antineoplastic chemotherapy; J44.9 Chronic obstructive pulmonary disease, unspecified; E11.9 Type 2 diabetes mellitus without complications; K21.9 Gastro-esophageal reflux disease without esophagitis; Z79.4 Long term (current) use of insulin; Z72.0 Tobacco use